=== PATIENT | female | born 1960 | race Caucasian/White ===

== ENCOUNTER 2019-02-25 16:13 | Inpatient (IN) | payer OTHER ==
[~2019-02-25] VITALS: Ht 157.5 cm; Wt 92.1 kg
[2019-02-25 16:20] VITALS: Ht 157.5 cm; Wt 92.1 kg
--- NOTE | 2019-02-25 17:11 | NUR ---
PT BIB SELF C/C LT PINKY TOE BLISTER X 3 WKS STS NOT HEALING AWAITING FOR DR KERVIN CASEY
--- NOTE | 2019-02-25 17:28 | NUR ---
DR ARRINGTON AT BEDSIDE TO CARMELA
[2019-02-25 18:08] LABS: BASOPHIL % 1.2 % (0-2); PLATELET COUNT 262 x10^3mcL (130-400)
[2019-02-25 18:10] LABS: RED CELL DISTRIBUTION WIDTH 15.6 % (11.5-14.5)
[2019-02-25 18:17] LABS: CARBON DIOXIDE 30.4 mmol/L (21-32); POTASSIUM SERUM 4.7 mmol/L (3.5-5.1)
[2019-02-25 18:18] LABS: CALCIUM 8.8 mg/dL (8.5-10.1); CREATININE SERUM 1.4 mg/dL (0.6-1.0)
[2019-02-25 18:22] LABS: BILIRUBIN TOTAL 0.5 mg/dL (0.20-1.00); C REACTIVE PROTEIN 2.9 mg/dL (<=0.9); TOTAL PROTEIN, SERUM 7.9 g/dL (6.4-8.2)
[2019-02-25 18:24] LABS: ALBUMIN 3.2 g/dL (3.4-5.0)
--- NOTE | 2019-02-25 18:25 | NUR ---
STARTED ON IV ATB
[2019-02-25 18:52] LABS: ERYTHROCYTE SED RATE 76 mm/hr (0-30)
--- NOTE | 2019-02-25 19:16 | NUR ---
PLEASE ENTER FULL NAMES OF STONER HAND/RN Patient data collected by (STONER HAND):Maci GRIGGS Assessment reviewed and completed by (RN): Alan ARNOLD
--- NOTE | 2019-02-25 20:07 | NUR ---
ATTEMPTED TO RECONCILE MEDS. PT STATES SHE WILL CONTACT HER DAUGHTER FOR HER MED LIST.
--- NOTE | 2019-02-25 20:17 | NUR ---
REPORT CALLED TO MARIVEL GARDINER TO ASSUME CARE OF PT.
[2019-02-25] MEDS ORDERED: ACTOS15 M1 PO (20:18)
[2019-02-25] MEDS ORDERED: VICTOZA6 MG/M1 (20:18)
[2019-02-25] MEDS ORDERED: BISOPROLOL FM5 MG PO (20:19)
[2019-02-25] MEDS ORDERED: LEVOTHYROXIN0.025 M2 PO (20:19)
[2019-02-25] MEDS ORDERED: ATORVASTATIN CA10 M1 PO (20:19)
[2019-02-25] MEDS ORDERED: LEVEMIR100 U/M1 SQ (20:20)
[2019-02-25] MEDS ORDERED: CYMBALTA20 M1 PO (20:20)
[2019-02-25] MEDS ORDERED: BUPROPION HCL150 M1 PO (21:30)
[2019-02-25 21:31] VITALS: BP 149/121
[2019-02-25] MEDS ORDERED: MIRAPEX0.25 MG PO (21:31)
--- NOTE | 2019-02-25 21:49 | NUR ---
RECEIVED PT FROM ER, PT ADMIT FOR LEFT DM FOOT OSTEOMYELITIS, PT IS A/O X4, VERBAL RESPONSIVE, LUNG SOUND CLEAR BILATERAL, NO COUGH, NO SOB, PT IS ON TELE 18, ST, DENY ANY CHEST PAIN OR DISCOMFORT, BOWEL SOUND PRESENT ALL 4 QUADRANTS, NO DISTENTION, NO TENDER. PEDAL PULSE PRESENT LEFT FOOT FAINT. LEFT FOOT SWELLING AND RED. THERE ARE 2 OPEN BLISTER AT LEFT FIFTH TOE, WOUND CULTURE COLLECTED. TALKED TO DR. CARDOSO REQUEST FOR WOUND CARE ORDER. MADE AWARE, IV AT LEFT FA, NO LEAKING, NO INFILTRATION. ALL ADLS ASSIST, ALL NEED MET, CALL LIGHT IN REACH, WILL CONTINUE TO MONITOR.
--- NOTE | 2019-02-25 23:00 | NUR ---
WOUND CARE PROVIDED. L FOOT ERYTHEMA AND 1+ EDEMA NOTED. REPORTS SOME NUMBING TO L FOOT. OPEN SKIN TO L 5TH TOE. WOUND BED RED AND NONDRAINING. CLEANSED WITH NS, DRIED, AND APPLIED 2X2 GAUZE. WRAPPED WITH KERLIX AND SECURED WITH TAPE. DR. CARDOSO MADE AWARE OF BP 168/86, MAP 105, HR 109. PT HAS NOT TAKING BP MED TODAY. RESIDENT STATED WILL ORDER ONE TIME HYDRALIZINE. PT INFORMED SOMEONE WILL NEED TO BRING HER HOME MED, BISOPROLOL, SINCE WE DO NOT HAVE IT. PT STATED HER DAUGHTER WILL BRING IT IN TOMORROW.
[2019-02-25 23:02] LABS: microscopic required? NO
[2019-02-25 23:24] LABS: urine erythrocyte NEGATIVE (NEGATIVE)
[2019-02-25 23:29] LABS: AMPHETAMINE QUAL UR NONE DETECTED (See below)
[2019-02-26 00:35] VITALS: BP 104/50
--- NOTE | 2019-02-26 01:22 | NUR ---
PT RESTING IN BED WITH EYES CLOSED. NO SIGNS OF DISTRESS OR PAIN NOTED. BREATHING EVEN/UNLABORED ON RA. CALL LIGHT WITHIN REACH, BED AT LOWEST POSITION. WILL CONTINUE TO MONITOR.
[2019-02-26 05:16] VITALS: BP 120/62
--- NOTE | 2019-02-26 05:55 | NUR ---
PT RESTING IN BED WITH EYES CLOSED. AWAKENS WITH VERBAL STIMULI. NO SIGNS OF DISTRESS NOTED. BREATHING EVEN/UNLABORED ON RA. DENIES PAIN AT THIS TIME. BS 156, 3 UNITS GIVEN. WILL ENDORSE TO DAY NURSE.
--- NOTE | 2019-02-26 07:20 | NUR ---
RECEIVED PT FROM PRESSURE TESTER OPERATOR NURSE. PT RESTING IN BED, AOX4, RESP E/U ON RA. DENIES FOOT PAIN AT THIS TIME, NO ACUTE DISTRESS NOTED. ON TELE [address] W/ PVCS, HR: 110. IV TO LCA W/ NO SIGNS OF INFILTRATION, IVF INFUSING WELL. DRESSING TO L 5TH TOE CDI. BED IN LOWEST POSITION AND CALL LIGHT WITHIN REACH. WILL CONTINUE TO MONITOR.
[2019-02-26 07:42] VITALS: BP 144/71
[2019-02-26 07:51] LABS: BASOPHIL % 0.7 % (0-2); PLATELET COUNT 223 x10^3mcL (130-400)
[2019-02-26 07:53] LABS: RED CELL DISTRIBUTION WIDTH 15.5 % (11.5-14.5)
[2019-02-26 08:04] LABS: CALCIUM 8.4 mg/dL (8.5-10.1); CARBON DIOXIDE 30.8 mmol/L (21-32); CREATININE SERUM 1.4 mg/dL (0.6-1.0); MAGNESIUM 1.7 mg/dL (1.8-2.4); PHOSPHOROUS 3.7 mg/dL (2.5-4.9); POTASSIUM SERUM 4.8 mmol/L (3.5-5.1)
--- NOTE | 2019-02-26 09:55 | NUR ---
WOUND CARE DONE. L 5TH TOE W/ NO DRAINAGE TO BLISTERS, PT DENIES PAIN TO SITE. CLEANSED W/ NS, 4X4 GAUZE APPLIED AND SECURED W/ LEOPOLDOX. WILL CONTINUE TO MONITOR.
[2019-02-26 11:44] VITALS: BP 155/82
[2019-02-26 16:26] VITALS: BP 177/87
--- NOTE | 2019-02-26 18:42 | NUR ---
PT RESTING IN BED, AOX4, RESP E/U ON RA. DENIES PAIN TO L FOOT, DRESSING CDI, NO ACUTE DISTRESS NOTED. CONSENT FOR SURGERY TOMORROW OBTAINED. IV TO LAC W/ NO SIGNS OF INFILTRATION. BED IN LOWEST POSITION AND CALL LIGHT WITHIN REACH. WILL ENDORSE TO ONCOMING NURSE.
--- NOTE | 2019-02-26 19:49 | NUR ---
AWAKE AND ALERT, ORIENTED TO NAME, PLACE, TIME AND SITUATION. SPEECH CLEAR AND APPROPRIATE. BREATHING EVEN AND UNLABORED ON ROOM AIR. HOB ELEVATED 30 DEG. IVF OF NS AT 100ML/HR INFUSING WELL TO IV SITE TO LEFT AC. DRESSING TO LEFT FOOT CDI. LEFT FOOT ELEVATED ON PILLOW. CALL LIGHT WITHIN EASY REACH.
[2019-02-26 20:28] VITALS: BP 156/75
--- NOTE | 2019-02-27 00:32 | NUR ---
PT WAS SITTING ON SIDE OF BED. AWAKE AND ALERT, TALKING OVER THE PHONE. CALL LIGHT WITHIN EASY REACH.
--- NOTE | 2019-02-27 01:27 | NUR ---
eyes closed, breathing unlabored. sinus tachycardic on tele, hr 104/min. in no acute distress. npo after midnight. endorsed to nurse mock.
[2019-02-27 04:47] VITALS: BP 142/74
--- NOTE | 2019-02-27 06:13 | NUR ---
PT HAD A RESTING NIGHT NO CHANGE AT THIS TIME WILL CONTINUE TO MONITOR.
[2019-02-27 06:20] LABS: BASOPHIL % 0.8 % (0-2); PLATELET COUNT 229 x10^3mcL (130-400)
[2019-02-27 06:23] LABS: RED CELL DISTRIBUTION WIDTH 15.5 % (11.5-14.5)
[2019-02-27 06:36] LABS: CALCIUM 8.6 mg/dL (8.5-10.1); CARBON DIOXIDE 27.5 mmol/L (21-32); CREATININE SERUM 1.2 mg/dL (0.6-1.0); MAGNESIUM 1.9 mg/dL (1.8-2.4); PHOSPHOROUS 3.5 mg/dL (2.5-4.9); POTASSIUM SERUM 4.3 mmol/L (3.5-5.1)
--- NOTE | 2019-02-27 07:10 | NUR ---
RECEIVED PT FROM ELEMENTARY READING TUTOR NURSE. PT IN BED SLEEPING, AROUSABLE, RESP E/U ON RA. NO SIGNS OF ACUTE DISTRESS NOTED. IV TO LAC W/ NO SIGNS OF INFILTRATIONS, IVF INFUSING WELL. DRESSING TO L FOOT CDI. ON NPO AT THIS TIME FOR SURGERY THIS AFTERNOON. BED IN LOWEST POSITION AND CALL LIGHT WITHIN REACH. WILL CONTINUE TO MONITOR.
[2019-02-27 08:00] VITALS: BP 150/84
--- NOTE | 2019-02-27 08:15 | NUR ---
WOUND CARE CONSULT NOT DONE, PT. SEEN AND EXAMED BY FOREPART LASTER DR. RAMOS WITH PLAN FOR AMPUTATION ON LEFT 5TH TOE.
[2019-02-27 12:03] VITALS: BP 154/91
--- NOTE | 2019-02-27 12:21 | NUR ---
PT RESTING IN BED, AOX4, RESP E/U ON RA. NO ACUTE DISTRESS NOTED. DRESSING TO L FOOT CDI, DENIES PAIN TO LLE. BED IN LOWEST POSITION AND CALL LIGHT WITHIN REACH. WILL CONTINUE TO MONITOR.
--- NOTE | 2019-02-27 14:12 | NUR ---
1. Recommend CCHO, cardiac diet once medically appropriate/ tolerated. 2. DM diet education provided.
--- NOTE | 2019-02-27 14:12 | NUR ---
Initial Nutrition Assessment: 238T/B DILAN MANUEL IA HR Dx: L diabetic foot osteomyelitis PMHx: HTN, DM, Diabetic neuropathy, Hypothyrodisim and high cholesterol PSHx: Labs: BG 125H, BUN 20H, CREAT 1.2H, A1C 8.2H, HGB 10.0L Meds: Colace, D 50%, Humulin, Lipitor, norco, synthyroid, vancomycin, Zofran, zosyn Diet: NPO (Sx) PO intake since admission: (02/26) dinner 90%, breakfast 100% Ht: 157.48 cm (62") Wt: 92 kg (202#) BMI: 37.1 kg/m2 Bed scale: 202.1# IBW: 110# (50 kg) %IBW: 183 UBW: 202# Age: 58/F Food Allergies: NKFA Skin: dressing to L foot Myron: 20 Edema: trace to L foot GI: Last BM: 02/25 Per H&P, Pt is a 58 years old female with PMH of HTN, DM, Diabetic neuropathy, Hypothyroidism and high cholesterol who brought to ED due to blister in his left 5th toe. RD Note (02/27): Patient was alert and oriented and said that she is NPO for surgery currently and does not have any N/V/D/C at this time. Patient said she has good appetite and she ate >75% of her meals yesterday. Diet education regarding Diabetic diet was provided, concept of A1C was also explained. Patient said that food insecurity is the issue for her. Problem with: N/V/D/C: none at this time per pt. Problems with: Chewing: Swallowing: none Current appetite: good Recent wt change: none %wt change: n/a Vitamin/Supplement use: none Special diet at home: Regular Physical activity: sedentary Nutrition education given: DM diet education was provided using [place] handout on 'Type 2 Diabetes Nutrition Therapy'. Concepts like high fiber foods and portion control were discussed. Patient verbalized understanding and did not have any questions at this time. Food-drug interactions: Lipitor- avoid grapefruit Education given: yes Estimated Nutritional Needs Based on body weight (61 kg) Energy: 2378-7877 kcal/day (30-35 kcal/kg for pre/post-surgery) Protein: 73-85 g/day (1.2-1.4 g/kg for post-surgery) Fluid: 0372-6936 mL/day (1 mL/kcal) Nutrition Diagnosis: 1. Food and nutrition related knowledge deficit related to no prior nutrition education as evidenced by A1C 8.2 Intervention 1. Recommend CCHO, cardiac diet once medically appropriate/ tolerated. 2. DM diet education provided. Monitor/Evaluate Goal: PO intake at least 75% of estimated needs Monitor: PO intake, Labs, GI function F/U in 7 days as low risk 03/06
--- NOTE | 2019-02-27 14:56 | NUR ---
PT BROUGHT DOWN FOR SURGERY AT THIS TIME.
[2019-02-27 18:08] VITALS: BP 158/84
--- NOTE | 2019-02-27 18:50 | NUR ---
IV INFILTRATED. IV TO RFA REMOVED, CATH INTACT. PLACED NEW IV TO RFA, 18G, PATENT AND INTACT. IV ZOSYN ADMINISTERED AT THIS TIME, INFUSING WELL. PT AOX4, RESP E/U ON RA. DENIES PAIN TO L FOOT S/P L 5TH DIGIT AMPUTATION, DRESSING CDI. BED IN LOWEST POSITION AND CALL LIGHT WITHIN REACH. WILL ENDORSE TO ONCOMING NURSE.
--- NOTE | 2019-02-27 19:19 | NUR ---
MICROBIOLOGY TECH CALLED STATED NEED TO CHANGE ORDER FROM TISSUE CULTURE TO ABSCESS CULTURE OF SPECIMEN SENT. INFORMED DR. CORRIGAN
--- NOTE | 2019-02-27 19:35 | NUR ---
AWAKE AND ALERT, ORIENTED TO NAME, PLACE, TIME AND SITUATION. SPEECH CLEAR AND APPROPRIATE. IVF OF NS INFUSING AT 100ML/HR INTO RIGHT FOREARM, IV SITE FREE FROM ERYTHEMA OR SWELLING. LEFT FOOT DRESSING CDI, LEFT FOOT ELEVATED ON PILLOW.
[2019-02-27 19:45] VITALS: BP 119/61
--- NOTE | 2019-02-27 22:16 | NUR ---
EYES CLOSED, BREATHING EVEN AND UNLABORED. CALL LIGHT WITHIN EASY REACH.
[2019-02-28 04:32] VITALS: BP 114/57
[2019-02-28 06:50] LABS: BASOPHIL % 0.4 % (0-2); CALCIUM 8.6 mg/dL (8.5-10.1); CARBON DIOXIDE 31.6 mmol/L (21-32); CREATININE SERUM 1.4 mg/dL (0.6-1.0); PLATELET COUNT 256 x10^3mcL (130-400); POTASSIUM SERUM 5.2 mmol/L (3.5-5.1)
[2019-02-28 06:57] LABS: RED CELL DISTRIBUTION WIDTH 15.3 % (11.5-14.5)
--- NOTE | 2019-02-28 07:15 | NUR ---
awake and alert, breathing even and unlabored on room air. left foot elevated on pillow. dressing to left foot was changed today by podiatrists. endorsed to nurse arechiga
[2019-02-28 07:43] VITALS: BP 152/72
--- NOTE | 2019-02-28 08:24 | NUR ---
AT 0715 - RECEIVED PATIENT FROM NIGHT NURSE. AWAKE, ALERT AND ORIENTED. SITTING UP IN BED. NO C/O PAIN. DRESSING WAS JUST CHANGED BY PODIATRY DOCTORS. LEFT LEG ELEVATED ON PILLOWS. IV INFUSING NS AT 100 ML/HR. AT 0800 - EATING BREAKFAST. APPEARS COMFORTABLE.
--- NOTE | 2019-02-28 09:00 | NUR ---
STATUS CHANGED TO MED-SURG. PATIENT HAS BEEN TAKEN OFF CARDIAC MONITORING.
--- NOTE | 2019-02-28 09:56 | NUR ---
PATIENT HAS BEEN UP WITH PHYSICAL THERAPY. NO C/O PAIN. NOW RESTING QUIETLY.
--- NOTE | 2019-02-28 14:02 | NUR ---
PATIENT AMBULATED TO BATHROOM WITH ASSISTANCE - PARTIAL WEIGHT BEARING LEFT FOOT (HEEL TOUCH ONLY). C/O PAIN 10/14. WILL MEDICATE WITH NORCO PER EMAR.
[2019-02-28 16:39] VITALS: BP 107/56
--- NOTE | 2019-02-28 18:22 | NUR ---
AT 1748 - RECEIVED CALL FROM LAB WITH VANCOMYCIN TROUGH OF 16.5. SPOKE WITH PHARMACIST ANASTASIYA. PER PHARMACIST, LEVEL IS IN CORRECT RANGE FOR PATIENT'S TREATMENT INDICATIONS, SO RECEIVED INSTRUCTION TO GO AHEAD AND ADMINISTER SCHEDULED DOSE AT 1800. AT 1820 - PATIENT EATING DINNER. VANCOMYCIN IN PROGRESS. PAIN UNDER CONTROL L FOOT DRESSING INS DRY AND INTACT. LLE ELEVATED ON PILLOWS. WILL ENDORSE CARE TO NIGHT NURSE.
--- NOTE | 2019-02-28 19:46 | NUR ---
PT SEATED UP IN BED LT LEG ELEVATED WITH 2 PILLOWS, INTACT DRESSING TO LEFT FOOT, S/P AMPUTATION, LT 5TH DIGIT TOE, NO SIGNS OF BLEEDING, DENIES PAIN, NO DISTRESS LUNGS CTA IVF NS INFUSING @ RFA @ 100CC/HR, CONT ON IV ATB VANCO AND ZOSYN ORDERED NO ADV REACTION, AAO X4 VERBALIZED NEEDS, SHIFT ASSESSMENT DONE, CALL LIGHT AT REACH, CONT TO MONITOR.
[2019-02-28 20:50] VITALS: BP 146/77
--- NOTE | 2019-03-01 00:04 | NUR ---
HANGED IV ATB ZOSYN ORDERED NO ADV REACTION, PT ASLEEP NO S/SX OF PAIN OR DISCOMFORTS, LEFT FOOT ELEVATED WITH 2 PILLOWS, CALL LIGHT WITH IN EASY ACCESS CONT TO MONITOR.
[2019-03-01 04:29] VITALS: BP 127/67
--- NOTE | 2019-03-01 05:56 | NUR ---
PT SLEPT WELL DURING THE SHIFT, DENIES PAIN NO DISTRESS INTACT DRESSING TO LT FOOT NO BLEEDING KEEP ELEVATED WITH PILLOW, IVF INFUSING WELL, DUE MEDS GIVEN V/S CHECKED AND RECORDED, CONT TO MONITOR.
[2019-03-01 07:25] LABS: BASOPHIL % 1.4 % (0-2); PLATELET COUNT 229 x10^3mcL (130-400)
[2019-03-01 07:39] LABS: RED CELL DISTRIBUTION WIDTH 15.6 % (11.5-14.5)
[2019-03-01 07:59] LABS: CALCIUM 8.8 mg/dL (8.5-10.1); CREATININE SERUM 1.3 mg/dL (0.6-1.0); POTASSIUM SERUM 4.5 mmol/L (3.5-5.1)
--- NOTE | 2019-03-01 08:03 | NUR ---
AAO TIMES 4. MED SURG. LUNGS CTA. NO SOB. O2 SAT ON RA 98%. BS'S ACTIVE TIMES 4. OLIVAS STRONG, EXCEPT PARTIAL WEIGHT BEARING TO LEFT HEEL ONLY WHEN AMBULATING. LEFT FOOT ELEVATED ON 2 PILLOWS. IV SITE RFA CDI. COOPERATIVE AND PLEASANT. NO C/O PAIN. ORTHO SHOE AT BEDSIDE.
[2019-03-01 08:14] VITALS: BP 158/86
[2019-03-01] MEDS ORDERED: BACTRIM DS1 TAB PO (09:37)
[2019-03-01] MEDS ORDERED: APAP/HYDROCODON1 T13 PO (09:54)
--- NOTE | 2019-03-01 10:27 | NUR ---
AMBULATING WITH PT, HIS OXYGEN SAT WENT DOWN TO 80%. APPLIED O2 2L NC, AND HIS O2 SAT WENT TO 93%. JOSÉ MIGUEL BUCKLEY CARE INFORMATION ASSOCIATE AWARE, HE HAS HOME OXYGEN.
--- NOTE | 2019-03-01 11:14 | NUR ---
REMOVED DRESSING TO LEFT FOOT, CLEANED WITH WOUND CLEANSER, TOOK PHOTO, SUTURES TO LEFT 5TH TOE AMPUTATION AREA CDI, INCISION IS 7.5 CM. PHOTO HAD SUNLIGHT OVER FOOT, THERE IS NO WHITNESS OR MACERATION TO FOOT. INCISION CDI. APPLIED FLUFF GAUZE TO BOTTOM FOREFOOT, GAUZE WRAP, AND WHITE DARIN WRAP. APPLIED HER SURGICAL SHOE.
[2019-03-01 12:02] VITALS: BP 158/86
--- NOTE | 2019-03-01 13:22 | NUR ---
GAVE DISCHARGE INSTRUCTIONS AND PRESCRIPTION SENT ELECTRONICALLY BY JOSÉ MIGUEL BUCKLEY WIRE STITCHER OPERATOR. REMOVED SALINE LOCK ANGIO INTACT. AAO TIMES 4. NO C/O PAIN. DRESSING LLE CDI. COOPERATIVE.
== END 2019-03-01 13:34 | disposition home health service (06) | DRG 474 ==
LOC: ED 16:13 → DU 19:58 → MU 19:58 → DU 20:31 → MU 02-28 07:56
PROVIDERS: Emergency Medicine; Podiatrist Foot & Ankle Surgery; ADMIT General Practice
PROC: 0QBR0ZZ Excision of Left Toe Phalanx, Open Approach (ICD-10-PCS; 2019-02-27)
PROC: 0Y6N0ZF Detachment at Left Foot, Partial 5th Ray, Open Approach (ICD-10-PCS; principal; 2019-02-27 14:00)
DX: M86.172 Other acute osteomyelitis, left ankle and foot (principal); N17.0 Acute kidney failure with tubular necrosis; L03.116 Cellulitis of left lower limb; E44.1 Mild protein-calorie malnutrition; D53.9 Nutritional anemia, unspecified; S90.425A Blister (nonthermal), left lesser toe(s), initial encounter; E11.42 Type 2 diabetes mellitus with diabetic polyneuropathy; E11.65 Type 2 diabetes mellitus with hyperglycemia; E03.9 Hypothyroidism, unspecified; Z79.84 Long term (current) use of oral hypoglycemic drugs; X58.XXXA Exposure to other specified factors, initial encounter; Y93.89 Activity, other specified; Y92.89 Other specified places as the place of occurrence of the external cause; Z68.39 Body mass index [BMI] 39.0-39.9, adult
CPT/HCPCS: 82962; 90658; 97112-GP; 97116-GP; 97530-GP; G0378; J1815; J2405; J2543; J2704; J3010; J3370; J3490; J7030; J7050; J7120; Q0092

== ENCOUNTER 2019-05-10 12:51 | Emergency (ER) | payer OTHER ==
[~2019-05-10] VITALS: Ht 157.5 cm; Wt 93.0 kg
[~2019-05-10 12:51] MED LIST: ACTOS15 M1 PO; APAP/HYDROCODON1 T13 PO; ATORVASTATIN CA10 M1 PO; BACTRIM DS1 TAB PO; BISOPROLOL FM5 MG PO; BUPROPION HCL150 M1 PO; CYMBALTA20 M1 PO; LEVEMIR100 U/M1 SQ; LEVOTHYROXIN0.025 M2 PO; MIRAPEX0.25 MG PO; VICTOZA6 MG/M1
[2019-05-10 13:07] VITALS: BP 127/76; Ht 157.5 cm; Wt 93.0 kg
== END 2019-05-10 16:34 | disposition home or self-care (01) ==
LOC: ED 12:51
DX: S82.391A Other fracture of lower end of right tibia, initial encounter for closed fracture (principal); S82.831A Other fracture of upper and lower end of right fibula, initial encounter for closed fracture; E11.9 Type 2 diabetes mellitus without complications; E03.9 Hypothyroidism, unspecified; W01.0XXA Fall on same level from slipping, tripping and stumbling without subsequent striking against object, initial encounter; Y93.89 Activity, other specified; Y92.89 Other specified places as the place of occurrence of the external cause; Y99.8 Other external cause status

== ENCOUNTER 2019-12-22 16:35 | Inpatient (IN) | payer OTHER, SELFPAY ==
[~2019-12-22] VITALS: Ht 157.5 cm; Wt 101.8 kg
[2019-12-22 16:52] VITALS: Ht 157.5 cm; Wt 101.8 kg
--- NOTE | 2019-12-22 16:53 | NUR ---
PT BIB [facility] BLS FOR C/O LOWER BACK PAIN AND LEFT HIP PAIN X3 DAYS S/P FALL. PT REPORTED HER DAUGHTER CALLED 911 "WHEN I WAS UNABLE TO GET UP OFF THE COUCH." PT IS AAOX4, LUNGS CTA, RESP E/U. PT UNABLE TO MOVE HERSELF FROM [facility] TO [facility]. PT WAS ASSISTED BY MEDICS. PT REPORTS HISTORY OF DIABETIC NEUROPATHY. MSE COMPLETED BY DR BAEZ.
--- NOTE | 2019-12-22 17:00 | NUR ---
PT NORMALLY AMBULATES WITHOUT ASSISTANCE PER PT.
--- NOTE | 2019-12-22 17:27 | NUR ---
PT TAKEN OFF THE ER FLOOR VIA GUERNEY TO HEATH.
--- NOTE | 2019-12-22 18:05 | NUR ---
DR BAEZ MADE AWARE OF VS. DR BAEZ AT THE BEDSIDE DISCUSSING PLAN OF CARE. PT REPORTED "I HAD FEVERS LAST WEEK." PER DR BAEZ, WILL ORDER AN ABG. WILL CONT TO MONITOR.
--- NOTE | 2019-12-22 18:35 | NUR ---
IV FLUIDS INITIATED AT THIS TIME, 1000ML BOLUS IV NS PER DR CARLTON VERBAL ORDER
--- NOTE | 2019-12-22 18:43 | NUR ---
PT BILATERAL PUPILS NOTED 2MM AND PINPOINT. PT NOTED STARING OFF AT TIMES BUT ABLE TO VERBALIZE NEEDS AND FOLLOW COMMANDS. DR BAEZ MADE AWARE. PT DENIES TAKING ANY MEDS "EXCEPT ADVIL" AT 1200 DE ICER INSTALLER TODAY NARCAN GIVEN IVP 0.4MG/ML PER DR BAEZ VERBAL ORDER.
--- NOTE | 2019-12-22 19:15 | NUR ---
REPORT GIVEN TO NONI ORTA WHO WILL ASSUME FURTHER CARE OF THIS PT
[2019-12-22 19:24] LABS: microscopic required? YES; urine erythrocyte 1+ (NEGATIVE)
--- NOTE | 2019-12-22 19:46 | NUR ---
RECED PT FROM AM RN WITH LOW B/P. MD AT THE BEDSIDE WITH PT AND GAVE NEW ORDER FOR 0/9NS BOLUS. AM RN CARRIED OUT ORDER. PT WITH NO S/S OF RESP DISTRESS NOTED PT STATES DAUGHTER HAS BEEN EXPOSED TO COVID PATIENTS. GAVE ORDER TO SEND COVID TEST. COLLECTED AND SENT TO THE LAB PT TOLERATED WELL. WILL CONTINUE TO MONITOR PT.
[2019-12-22 19:48] LABS: CALCIUM 8.2 mg/dL (8.5-10.1); CARBON DIOXIDE 32.8 mmol/L (21-32); CREATININE SERUM 1.8 mg/dL (0.6-1.0); POTASSIUM SERUM 3.8 mmol/L (3.5-5.1)
[2019-12-22 19:53] LABS: BILIRUBIN TOTAL 0.57 mg/dL (0.20-1.00); TOTAL PROTEIN, SERUM 6.5 g/dL (6.4-8.2)
[2019-12-22 19:58] LABS: PLATELET COUNT 257 x10^3mcL (130-400)
[2019-12-22 20:00] LABS: RED CELL DISTRIBUTION WIDTH 17.6 % (11.5-14.5)
[2019-12-22 20:04] LABS: ALBUMIN 1.9 g/dL (3.4-5.0)
[2019-12-22 20:17] LABS: C REACTIVE PROTEIN 31.5 mg/dL (<=0.9)
[2019-12-22 20:21] LABS: MONOCYTE 3 % (0-7); SEGMENTED NEUTROPHILS 87 % (37-75)
[2019-12-22 20:22] LABS: BAND NEUTROPHIL 7 % (0-10); BASOPHIL 0 % (0-2); rbc morphology (normal/abnorm) NORMAL (NORMAL)
--- NOTE | 2019-12-22 20:30 | NUR ---
GAVE ORDER TO ADMIT PT TO ICU. PT AWARE AND STABLE AT THIS TIME. PT COVID R/O RR 20 02 SAT 100% NO DISTRESS NOTED
[2019-12-22 21:37] LABS: MAGNESIUM 1.9 mg/dL (1.8-2.4); PHOSPHOROUS 2.8 mg/dL (2.5-4.9)
[2019-12-22 21:38] LABS: CHOLESTEROL/HDL RATIO 3.5
--- NOTE | 2019-12-22 21:40 | NUR ---
RESIDENT AT THE BEDSIDE TO EXAMINE PT. PT V/S WNL RESTING WELL WITH NO CHANGE IN CONDITION NOTED WILL CONTINUE TO MONITOR PT FOR CHANGES. MADE MD AWARE OF SWELLING TO RT LOWER EXT WITH WOUND NOTED EXT WARM TO TOUCH SWELLING AND REDNESS NOTED.
[2019-12-22 21:45] LABS: FREE T4 1.22 ng/dL (0.76-1.46); FREE THYROXINE INDEX 2.5 ug/dL (1.4-4.5); T4(THYROXINE) 6.3 ug/dL (4.7-13.3)
[2019-12-22 21:50] LABS: T3 TOTAL 0.34 ng/mL
--- NOTE | 2019-12-22 23:43 | NUR ---
PT REMAIN RESTING WELL WITH NO CHANGE IN CONDITON AT THIS TIME VANCOMYCIN INFUSING PER MD ORDER WITH NO S/S OF ADVERSE REACTION NOTED WILL CONTINUE TO MONITOR PT UNTIL ADMITTED TO ICU
--- NOTE | 2019-12-23 | NUR ---
PATIENT ALSEEP RESETING WELL WITH NO CHANGE IN CONDITON NOTED. ZOSYN HELD AT THIS TIME TO CLOSE SINCE LAST DOSE. WILL GIVE OR ENDORSE 0600 DOSE PER MD ORDER. V/S WNL NO CHANGE IN CONDITON NOTED AT THIS TIME
--- NOTE | 2019-12-23 02:30 | NUR ---
PT REMAIN IN STABLE CONDITON WITH V/S WNL. RESIDENT CALLED TO DOWNGRADE PATIENT TO TELE. GAVE ORDER TO ADMIT PT TO TELE AFTER UPDATE GIVEN. WILL CONTINUE TO MONITOR PATIENT FOR A CHANGE IN CONDITON. NO S/S OF RESP DISTRESS NOTED PT REMAIN ON ISOLATION FOR COVID.
--- NOTE | 2019-12-23 07:15 | NUR ---
CANCELLATION REQUESTED FOR ECHOCARDIOGRAM
--- NOTE | 2019-12-23 07:30 | NUR ---
REPORT TAKEN. PT AAOX4 AND EATING BREAKFAST SITTING H/F. GLUCOSE 85. VSS, NAD NOTED AT THIS TIME.
--- NOTE | 2019-12-23 08:16 | NUR ---
RICKS BAG DRAINED. TOTAL OUTPUT 700ML. ALEX COLORED URINE
--- NOTE | 2019-12-23 08:40 | NUR ---
ADMITTED PT FROM ED WITH DX OF RT LEG CELLULITIS, PUI. PT IS A/A/OX4 DENIES GARCIA. RESP EVEN AND UNLABORED WITH CLEAR BS BILAT ON O2 AT 2L/MIN VIA NC. PLACED ON TELE #39 SHOWING NSR HR IN 90S. DENIES ANY CP/PRESSURE. NOTED WITH +2 EDEMA TO RLE. WITH IV TO LW AND LFA 20G. PATENT. ABD SOFT, OBESE, NONTENDER WITH ACTIVE BS X4. HX CONSTIPATION. DENIES ANY N/V AT THIS TIME. RICKS CATH TO GRAVITY WITH YELLOW URINE. NOTED WITH SCATTERED DRY "BLISTERS" DESCRIBED BY PT AT VARIOUS STAGES OF HEALING. TO ABD, BLE AND BUE. SOME WITH DRY SCABS. NO OPEN WOUNDS AT THIS TIME. PT ORIENTED TO ROOM AND CALL LIGHT SYSTEM. DROPLET PRECAUTIONS MAINTAINED FOR CVD R/O. CALL LIGHT IN REACH NEEDS ATTENDED TO.
[2019-12-23 08:58] LABS: PLATELET COUNT 279 x10^3mcL (130-400)
[2019-12-23 09:11] LABS: RED CELL DISTRIBUTION WIDTH 17.6 % (11.5-14.5)
[2019-12-23 09:16] LABS: CALCIUM 8.3 mg/dL (8.5-10.1); CARBON DIOXIDE 25.3 mmol/L (21-32); CREATININE SERUM 1.6 mg/dL (0.6-1.0); POTASSIUM SERUM 3.8 mmol/L (3.5-5.1)
[2019-12-23 09:20] LABS: MAGNESIUM 2.1 mg/dL (1.8-2.4); PHOSPHOROUS 3.1 mg/dL (2.5-4.9)
--- NOTE | 2019-12-23 09:45 | NUR ---
DR LEMUS NOTIFIED ABOUT PATIENTS FIRST COVID SWAB RESULTS. RESULTS NEGATIVE. NO FUTHER ORDERS AT THIS TIME
[2019-12-23 10:59] LABS: BAND NEUTROPHIL 30 % (0-10); BASOPHIL 0 % (0-2); METAMYELOCTE 2 % (0-2); MONOCYTE 3 % (0-7); MYELOCYTE 1 % (0-2); SEGMENTED NEUTROPHILS 53 % (37-75)
[2019-12-23 11:03] LABS: PLATELET MORPHOLOGY GIANT PLATELET SEEN; burr cell (echinocyte) 1+; ovalocyte/elliptocyte 1+; rbc morphology (normal/abnorm) ABNORMAL (NORMAL); tear drop cell (dacryocyte) 1+
--- NOTE | 2019-12-23 11:20 | NUR ---
PT RESTING AT THIS TIME DENIES ANY DISCOMFORT AT THIS TIME. CALL LIGHT IN REACH NEEDS ATTENDED TO.
[2019-12-23 12:18] VITALS: BP 145/67
[2019-12-23 14:30] VITALS: BP 131/67
--- NOTE | 2019-12-23 16:00 | NUR ---
PT RESTING AT THIS TIME. DENIES ANY DISCOMFORT AT THIS TIME. CALL LIGHT IN REACH NEEDS ATTENDED TO.
[2019-12-23 16:20] VITALS: BP 98/58
[2019-12-23 17:08] LABS: AMPHETAMINE QUAL UR NONE DETECTED (See below)
--- NOTE | 2019-12-23 18:50 | NUR ---
PT RESTING COMFORTABLY AT THIS TIME. DENIES ANY DISCOMFORT. CALL LIGHT IN REACH NEEDS ATTENDED TO.
--- NOTE | 2019-12-23 19:20 | NUR ---
RECEIVED PATIENT FROM PREVIOUS SHIFT NURSE. PATIENT IN NO ACUTE DISTRESS. AWAKE, ALERT AND ORIENTED X4. FOLLOWS COMMANDS AND ABLE TO MAKE NEEDS KNOWN. DENIES ANY PAIN AT THIS TIME. TELE #[address], NSR. EVEN AND UNLABORED BREATHING NOTED ON 2L NC. DENIES ANY SOB AT THIS TIME. RICKS IN PLACE, DRAINING TO GRAVITY WITH YELLOW COLORED URINE. PATIENT HAS VARIOUS SCATTERED SCABS IN DIFFERENT STAGES OF HEALING PROCESS. NO OPEN WOUNDS NOTICED AT THIS TIME. PATIENT SAID THEY WERE BLISTERS. NO PAIN AT SCAB SITES. IVS WNL. NO ERYTHEMA/EDEMA AT IV SITES. FLUSHING WELL, GOOD BLOOD RETURN.
[2019-12-23 19:33] VITALS: BP 124/59
--- NOTE | 2019-12-23 20:45 | NUR ---
DR LEMUS NOTIFIED ABOUT PATIENTS NEGATIVE COVID RESULTS. ISOLATION PRECAUTIONS STILL REMAIN IN PLACE. NO FURTHER ORDERS FROM . SANJIV ORDERS TO DC ISOLATION AT THIS TIME.
--- NOTE | 2019-12-24 02:13 | NUR ---
PATIENT REMAINS IN NO ACUTE DISTRESS. CURRENTLY SLEEPING. EVEN AND UNLABORED BREATHING NOTED, 2L NC. MEDICATED PER MAR WITH NORCO. HAS NOT C/O SINCE MEDICATED. PATIENT VERBALIZED RELIEF OF PAIN UPON ASSESSMENT. TELE #[address], NSR. BED IN LOWEST POSITION. CALL LIGHT WITHIN REACH. ISOLATION PRECAUTIONS IN PLACE.
--- NOTE | 2019-12-24 02:27 | NUR ---
PAGED DR LEMUS IN REGARDS TO COVID RESULTS. AWAITING ORDERS FOR DC OF ISOLATION PRECAUTIONS OR SWAB FOR COVID A SECOND TIME. NO ORDERS AT THIS TIME.
[2019-12-24 05:16] VITALS: BP 127/53
--- NOTE | 2019-12-24 06:40 | NUR ---
REMAINS IN NO ACUTE DISTRESS. ALL CONCERNS HAVE BEEN ADRESSED. NO ACUTE EVENTS OVER NIGHT. PATIENT IS NOT COMPLAINING OF PAIN AT THIS TIME. TOELRATED MEDICATIONS WELL. WILL CONTINUE TO MONITOR. WILL ENDORSE CARE TO ONCOMING SHIFT NURSE.
--- NOTE | 2019-12-24 07:30 | NUR ---
PATIENT IS A&OX4, FOLLOWS COMMANDS AND COOPERATES WELL. TELE #39, NSR, DENIES CHEST PAIN. PERIPHERAL PULSES PALPABLE W/ RLE NONPITTING EDEMA. LUNG SOUNDS CTA BILATERALLY, ON RA, O2 SAT 97%, DENIES SOB. NORMOACTIVE BSX4, ABD SOFT AND FLAT, DENIES ABD PAIN, NPO AT THIS TIME FOR FUTURE SURGERY. RICKS CATHETER DRAINING CLEAR YELLOW URINE. GENERALIZED WEAKNESS, REQUIRES ASSISTANCE WHEN AMBULATING. SCATTERED SCABS NOTED ON ABD. RLE DISCOLORATION NOTED WELL. IV SITE IS CDI. DENIES PAIN OR DISCOMFORT AT THIS TIME. INFORMED CONSENTS HAVE BEEN SIGNED. HAS ALREADY ANSWERED QUESTIONS AND CONCERNS WHEN EXPLAINING THE PROCEDURE LAST NIGHT. VSS. WILL CONTINUE TO MONITOR PATIENT.
[2019-12-24 08:42] VITALS: BP 117/56
--- NOTE | 2019-12-24 10:49 | NUR ---
ABX ARE CURRENTLY INFUSING AT THIS TIME. IV REMAINS PATENT. PATIENT STATES RLE PAIN IS MANAGEABLE AND DOES NOT REQUIRE MEDICATION, EVEN AFTER PHYSICAL THERAPY. WILL CONTINUE TO MONITOR PATIENT.
--- NOTE | 2019-12-24 10:59 | NUR ---
PATIENT'S RIGHT WRIST IV HAS BEEN DC BECAUSE IT WAS LEAKING. IV CATHETER WAS INTACT AND DISPSOED OF IN SHARPS CONTAINER. RFA IV SITE IS CDI AND NOW BEING USED FOR ABX.
[2019-12-24 12:12] VITALS: BP 119/62
--- NOTE | 2019-12-24 12:44 | NUR ---
CHG WIPES HAVE BEEN DONE ON PATIENT. INFORMED PATIENT TAHT JEWELRY AND DENTURES MUST BE TAKEN OUT PRIOR TO SURGERY. ALL QUESTIONS AND CONCERNS HAVE BEEN ADDRESSED. WILL CONTINUE TO MONITOR.
--- NOTE | 2019-12-24 13:00 | NUR ---
PATIENT WAS TRANSFERRED TO SURGERY AT THIS TIME. WILL AWAIT FOR PATIENT TO RETURN FROM SURGERY.
--- NOTE | 2019-12-24 17:45 | NUR ---
PATIENT RETURNED FROM OR AFTER PROCEDURE. PATIENT WAS WIDE AWAKE, AND DID NOT COMPLAIN OF ANY PAIN OR DISCOMFORT AT THIS TIME. UPON ARRIVAL, IT WAS NOTED THAT PATIENT HAD DRESSINGS OVER HER RLE WITH A WOUND VAC IN USE AT 150 MM HG. RECONNECTED PATIENT WITH IV FLUIDS AND ABX. BP IS ELEVATED, BUT WILL CONTINUE TO MONITOR. PATIENT IS CURRENTLY SPEAKING TO FAMILY AT THIS TIME.
--- NOTE | 2019-12-24 18:15 | NUR ---
PATIENT IS CURRENTLY RESTING IN BED AND STILL DENIES ANY PAIN OR DISCOMFORT AT THIS TIME. WILL CONTINUE TO MONITOR PATIENT AND MANAGE PAIN NEEDED.
--- NOTE | 2019-12-24 19:45 | NUR ---
RECEIVED PT FROM AM NURSE, PT AWAKE IN BED WATCHING TELEVISION. AA/O X 4, ABLE TO MAKE NEEDS KNOWN, CLEAR SPEECH, NO FACIAL DROOP. DENIES HEADACHE/ DENIES DIZZINESS. TELE MONITOR #39, NSR, HR 96 BPM. DENIES CHEST PAIN/ CHEST PRESSURE. PULSES PALPABLE. LUNG SOUNDS CTA, ON ROOM AIR, RESPIRATIONS E/U. NO RESPIRATORY DISTRESS, DENIES SOB. ACTIVE BS X 4 QUADS, ABD SOFT AND NON TENDER, DENIES N/V/D. PT HAS FC DRAINING TO GRAVITY, DRAINING YELLOW URINE. GENERALIZED WEAKNESS. R LEG 4 INCISIONS CLOSED WITH TRINI, 3 INCISIONS CONNECTED TO WOUND VAC SETTING 150 PRESSURE. LEFT FOOT 2 TOES AMPUTATED. IV TO RFA INTACT, IV FLUIDS INFUSING WELL. NO ERYTHEMA/ NO INFILTRATION AT THIS TIME. PT DENIES PAIN. ALL CONCERNS ADDRESSED. CALL BUTTON WITHIN REACH, WILL CONTINUE TO MONITOR.
[2019-12-24 21:08] VITALS: BP 126/51
--- NOTE | 2019-12-24 23:45 | NUR ---
pt blood sugar 298, DR. ALLAN ORDERED 45 UNITS LANTUS. UNABLE TO SCAN ON EMAR. 45 UNITS OF LANTUS GIVEN TO PT. SECOND RN DOUG WITNESSED. PUDDING SNACK GIVEN. WILL CONTINUE TO MONITOR.
--- NOTE | 2019-12-25 00:15 | NUR ---
PT IN BED RESTING WITH EYES CLOSED, BUT EASILY AROUSABLE. RESPIRATIONS E/U ON 2 LPM OF VIA NC. DENIES SOB, NO RESPIRATORY DISTRESS AT THIS TIME. TELE MONITOR #39, NSR, HR 94. DENIES PAIN AT THIS TIME. WOUND VAC ATTACHED AT THIS TIME. NO ACUTE DISTRESS. CALL BUTTON WITHIN REACH, WILL CONTINUE TO MONITOR.
--- NOTE | 2019-12-25 04:15 | NUR ---
BLOOD SUGAR CHECKED SINCE LANTUS 45 UNITS WAS GIVEN. BLOOD SUGAR IS 218. WILL CONTINUE TO MONITOR.
[2019-12-25 06:11] VITALS: BP 144/72
[2019-12-25 06:53] LABS: PLATELET COUNT 266 x10^3mcL (130-400)
--- NOTE | 2019-12-25 07:15 | NUR ---
PT SLEPT IN INTERVALS THROUGHOUT THE NIGHT, BUT EASILY AROUSABLE. RESPIRATIONS E/U ON RA. NO RESPIRATORY DISTRESS. PT COMPLAINED OF PAIN, PRN NORCO GIVEN PER ORDER, EFFECTIVE. WOUND VAC TO RLE IN PLACE, PRESSURE 150, MINIMAL OUTPUT NOTED. IV FLUIDS INFUSING WELL TO IV. NO ACUTE CHANGES OVERNIGHT. CALL BUTTON WITHIN REACH, CARE ENDORSED TO AM NURSE.
[2019-12-25 07:17] LABS: CALCIUM 8.2 mg/dL (8.5-10.1); CARBON DIOXIDE 31.7 mmol/L (21-32); CREATININE SERUM 1.5 mg/dL (0.6-1.0); MAGNESIUM 2.2 mg/dL (1.8-2.4); PHOSPHOROUS 3.1 mg/dL (2.5-4.9); POTASSIUM SERUM 4.8 mmol/L (3.5-5.1)
[2019-12-25 07:19] LABS: RED CELL DISTRIBUTION WIDTH 18.5 % (11.5-14.5)
[2019-12-25 07:21] LABS: ALBUMIN 1.6 g/dL (3.4-5.0); C REACTIVE PROTEIN 14.8 mg/dL (<=0.9)
[2019-12-25 07:30] VITALS: BP 140/89
--- NOTE | 2019-12-25 07:49 | NUR ---
PATIENT IS A&OX4, FOLLOWS COMMANDS AND COOPERATES WELL. TELE #39, NSR, DENIES CHEST PAIN. PERIPEHRAL PULSES PALPABLE W/ NOTED EDEMA ON RLE, WHICH IS COVERED WITH SURGICAL DRESSINGS. DRESSINGS CDI. LUNG SOUNDS CTA BILATERALLY, ON RA, O2 SAT 98%, DENIES SOB. NORMOACTIVE BSX4, ABD SOFT AND ROUND, DENIES ABD PAIN. RICKS CATHETER IN PLACE, DRAINING YELLOW URINE. SKIN IS CDI. REMAINING IN BED AT THIS TIME, WITH MILD GENERALIZED WEAKNESS. IV SITE IS CDI. DENIES ANY PAIN OR DISCOMFORT AT THIS TIME. WOUND VAC SET AT 150 MM HG. WILL CONTINUE TO MONITOR FOR ANY ABNORMAL DRAINAGE ON SURGICAL DRESSINGS AND WILL MANAGE ANY PAIN OR DISCOMFORT.
[2019-12-25 10:15] LABS: BAND NEUTROPHIL 1 % (0-10); MONOCYTE 6 % (0-7); SEGMENTED NEUTROPHILS 87 % (37-75); rbc morphology (normal/abnorm) ABNORMAL (NORMAL)
--- NOTE | 2019-12-25 10:28 | NUR ---
PATIENT DENIES ANY PAIN OR DISCOMFORT AT THIS TIME. WILL CONTINUE TO MONITOR PATIENT.
--- NOTE | 2019-12-25 16:01 | NUR ---
RECEIVED REPORT FROM JERONIMO ORTA PT RECEIVED VIA [employer] A&O X4 ON TELE 39. RLE DRESSING IN PLACE WOUND VAC IN PLACE DRAINING 200ML AT THIS TIME. RICKS DRAINING ALEX URINE TO GRAVITY. IV ON RFA PATENT AND INTACT NO RENESS OR EDEMA. ON RA @ 100% LUNGS CTA BILAT. PT DENIES ANY PAIN AT THIS TIME. ALL NEEDS ATTENDED TO. BED IN LOWEST POSITION CALL LIGHT WITHIN REACH. WILL CONTINUE TO MONITOR
--- NOTE | 2019-12-25 16:30 | NUR ---
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 Ht: 157.48cm/62in Wt: 101.775kg/223.9lbs BMI:41 Bed scale: 250.6lbs IBW: 50kg/110lbs %IBW: 203.6% ABW: 63kg UBW: 200lbs in June per pt Age: 59 Food Allergies: NFKA per pt Edema: edema noted to RLE Last BM: 12/22 Skin: Surgical wound noted to RLE Myron: 20 Per H and P (12/21), pt is a 59 yo female with PMhx of DM presents is brought to the hospital with complaints of lower back pain that radiates to the sides of her abdomen and hips bilaterally. Pt states that the back pain started 3 days ago after she fell on her bottom after losing balance. In addition, pt reports right leg pain and reports tenderness in the back of right calf as well as soreness in her thighs. 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 Pt also reports having headache and fever "in the 100s" which has subsided since. Pt admits to constipation but denies head trauma, nausea, vomiting, chest pain, abdominal pain, dysuria, hematuria, loss of motor function in UE and LE bilaterally. Pt denies recent travel, diet changes or recent sick contacts. Pt was admitted dx: Sepsis, fever possible 2/2 COVID 19, Hypotension, DMOOC, vasomotor neuropathy, hyponatremia, hypochloremia, h/o hypothyroidism, h/o depression, h/o restless leg syndrome, DVT RD Note (12/24) Pt was lying in bed during bedside visit. Pt's lunch plate was seen untouched per observation. Per pt, she had constipation, and her last BM was on 12/22. Pt reported improved appetite, and she was tolerating current diet with no chewing/swallowing difficulty. Recent weight gain was mentioned by pt, and before her weight gain, pt weighted 200lbs in June. At home, pt did not take any supplement, and pt tried to stay away from sweets and added sugar by substituting food items with diet or sugar free version. Pt denied doing any form of physical activity d/t her bad ankle. Wound vac was seen on pt's bed. Problem with: N/V/D/C: Constipated per pt Problems with: Chewing: Swallowing: none per pt Current appetite: Improved; but lunch tray untouched today Recent wt change: 23lbs of weight gain since June %wt change: 11.5% of weight gain per pt Height: 5'2" Vitamin/Supplement use: none per pt Special diet at home: Avoid added sugar per pt Physical activity: No d/t bad ankles per pt Nutrition education given (specify specific nutrition education and handout given): Education on diabetic diet was provided. Explained that as added sugar can increase pt's blood sugar, food with high carbohydrate can also increase blood sugar if not consume in moderation. Encouraged pt to maintain consistent carbohydrate intake (3-5 servings) to control her blood sugar, and also explained the benefits of whole grain instead of refined grain. Answered pt's question regarding aspartame and explain how to use nutrition label to shop for food. Written education from [place], "Type 2 Diabetes Nutrition Therapy" and "Diabetes Label Reading Tips" were provided to pt, and pt verbalized understanding. Food-drug interactions? Education given? n/a Estimated Nutritional Needs Based on adjusted body weight (63kg) Energy: 6651-3274 kcal/day (30-35 kcal/kg for sepsis, optimal wound healing) Protein: 78-94 g/day (1.25-1.5 g/kg for sepsis, optimal wound healing) Fluid: 3048-5899 mL/day (1 mL/kcal) Nutrition Diagnosis: 1. Increased energy and protein needs r/t skin integrity a/e/b pt has surgical wound and on wound vac. 2. Impaired nutrition utilization r/t endocrine dysfunction a/e/b pt elevated BG 234H, POC BG 254H on12/24, and A1C 8.9 on 12/21. Intervention 1. Recommend continue CCHO diet as tolerate 2. Recommend glucerna BID to meet high kcal and protein demand. It will provide additional 440kcal and 20g protein. 3. Recommend Oj BID for wound healing. Paged Dr. Chen, waiting for response. Monitor/Evaluate Goal: PO intake at least 75% of estimated needs (ongoing, pending clinical course outcome) Monitor: PO intake, Labs, GI function, ONS intake, Skin integrity F/U in 3-5 days as moderate risk 12/27-
[2019-12-25 17:39] VITALS: BP 149/77
--- NOTE | 2019-12-25 18:46 | NUR ---
Pt LYING BED DRESSING ON RIGHT FOOT C/D/I WOUND VAC INTACT DRAINING WELL. RICKS CATHETER DRAINING TO GRAVITY ALEX URINE NOTED. IV PATENT AND INTACT NO REDNESS OR EDEMA NOTED. ALL NEEDS ATTENDED TO. WILL ENDORSE CARE TO NIGHT RN
--- NOTE | 2019-12-25 19:30 | NUR ---
Pt. received from day shift, currently resting in bed. Pt. is a/o x4,a ble to make needs know, able to follow commands, no c/o h/a. Pt. breathing on e/u on RA, no acute distress or SOB noted. Pt. has no c/o pain or s/o discomfort at this time or c/o chest pain. Pt. wound vac dressing in tact, drainage still at 200 cc dark and red, no changes from day shift report. Pt. on tovar cath draining c/y, IV site patent, will cont. to monitor. Otherwise, pt. stable, will cont. to monitor.
[2019-12-25 21:13] VITALS: BP 128/58
--- NOTE | 2019-12-25 22:53 | NUR ---
Pt. tolerated medication well, will monitor bg level as pt. on lantus and covered tonight, no s/o acute distress, able to make needs known, will cont. to monitor.
[2019-12-26 05:38] VITALS: BP 143/75
--- NOTE | 2019-12-26 05:55 | NUR ---
Pt. stable thorughout shift, no acute distress noted. Minimal drainage on wound vac, 25cc at most change form change of shift. Pt. educated on medication, verb. understanding. Pt. c/o pain x1, medicated w/ norco as ordered. Ohterwise, pt. stable, will cont. to monitor and endorse to next shif tRN.
--- NOTE | 2019-12-26 07:05 | NUR ---
RECEIVED BEDSIDE REPORT FROM NIGHT RN. PT ASLEEP IN BED WITH EYES CLOSED. EASILY AROUSABLE. RREVEN AND UNLABORED ON RA. PT ON TELE#39. STANDARD PRECAUTION IN PLACE. HOB ELEVATED. BED RAILS UPX2. CALL LIGHT WITHIN REACH. BED LOCKEDIN LOWEST POSITION. WILL CONTINUE TO MONITOR.
[2019-12-26 07:27] LABS: BASOPHIL % 0.1 % (0-2); PLATELET COUNT 288 x10^3mcL (130-400)
[2019-12-26 07:38] LABS: CARBON DIOXIDE 26.1 mmol/L (21-32); CREATININE SERUM 1.6 mg/dL (0.6-1.0); PHOSPHOROUS 2.3 mg/dL (2.5-4.9); POTASSIUM SERUM 3.9 mmol/L (3.5-5.1)
[2019-12-26 07:55] VITALS: BP 133/66
--- NOTE | 2019-12-26 09:15 | NUR ---
DARCI TR 25.2. PHARMACY CALLED AND TOLD TO HOLD DARCI FOR TODAY.
[2019-12-26 09:34] LABS: RED CELL DISTRIBUTION WIDTH 18.4 % (11.5-14.5)
[2019-12-26 12:05] VITALS: BP 112/54
--- NOTE | 2019-12-26 14:12 | NUR ---
PT IN BED RESTING. RR EVEN AND UNLABORED ON RA. PT DENIES PAIN AT THIS TIME. HOB ELEVATED. CALL LIGHT WITHIN REACH. WOUND VAC IN TAC. ALL NEEDS MEET AT THIS TIME. WILL CONTINUE TO MONITOR.
[2019-12-26 14:50] VITALS: BP 124/82
--- NOTE | 2019-12-26 17:00 | NUR ---
PT IN BED RESTING. NO ACUTE DISTRESS. RR EVEN AND UNLABORED ON RA. PT DENIES CHEST PAIN OR PRESSURE. RICKS DRAINING TO GRAVITY. CALL LIGHT WITIH REACH. BED LOCKED IN LOWEST POSITION.
--- NOTE | 2019-12-26 19:10 | NUR ---
RECEIVED PATIENT FROM PREVIOUS SHIFT NURSE. PATIENT IN NO ACUTE DISTRESS. AWAKE, ALERT AND ORIENTED X4. DENIES ANY PAIN AT THIS TIME. TELE #39 IN [place], NSR. DENIES ANY CHEST PAIN OR CHEST PRESSURE. EVEN AND UNLABORED BREATHING NOTED ON ROOM AIR. RICKS CATH IN PLACE DRAINING TO GRAVITY, WITH YELLOW COLORED URINE. RFA IV WNL. FLUSHING WELL AND GOOD BLOOD RETURN. WOUND VAC IN PLACE, INTACT/WNL. BED IN LOWEST PPOSITION. CALL LIGHT WITHIN REACH.
--- NOTE | 2019-12-26 19:22 | NUR ---
ENDORSED CARE TO NIGHT RN.
--- NOTE | 2019-12-26 21:25 | NUR ---
PATIENT GIVEN ORANGE JUICE WITH HER NIGHT MEDICATIONS.
[2019-12-26 21:33] VITALS: BP 159/84
--- NOTE | 2019-12-27 | NUR ---
PATIENT C/O RLE PAIN. 09/13. MEDICATED PER JUL.
--- NOTE | 2019-12-27 03:42 | NUR ---
PATIENT SLEEPING. NO C/O PAIN AT THIS TIME. WILL CONTINUE TO ASSESS PAIN. PATIENT INSTRUCTED TO USE CALL LIGHT NEEDED. AND WAS ADVISED THAT WE SHOULD CONTROL PAIN AND NOT LET IT GET TO 10/10. EVEN AND UNLABORED BREATHING NOTED. BED IN LOWES POSITION. CALL LIGHT WITHIN REACH. SIDE RAILS UP X2.
[2019-12-27 04:33] VITALS: BP 167/78
--- NOTE | 2019-12-27 05:24 | NUR ---
NOTIFIED ABOUT PATIENTS ELEVATED BP. 167/78, NO FURTHER ORDERS AT THIS TIME. WILL FOLLOW UP.
--- NOTE | 2019-12-27 06:00 | NUR ---
D50 PUSHED FOR BS OF 36 AND 31. CODE: [phone] [id number]. WITNESSED BY MARIVEL DIAZ. BS NOW 93 AFTER PUSHING D50. WILL CONTINUE TO MONITOR.
[2019-12-27 06:29] VITALS: BP 160/81
--- NOTE | 2019-12-27 06:40 | NUR ---
PATIENTS BS REASSESSED. BS 97.
--- NOTE | 2019-12-27 07:20 | NUR ---
RECIEVED BEDSIDE REPORT FROM NIGHT RN. PT IN BED RESTING. NO ACUTE DISTRESS. RR EVEN AND UNLABORED. IV IN L HAND CDI WITH NO REDNESS OR SWELLING. STANDARD PRECAUTIONS. PT ON TELE#39. PT NPO SINCE MIDNIGHT. CALL LIGHT WITHIN REACH. BED LOCKED IN LOWEST POSITION. WILL CONTINUE TO MONITOR.
[2019-12-27 07:46] LABS: CALCIUM 8.1 mg/dL (8.5-10.1); CARBON DIOXIDE 26.8 mmol/L (21-32); CREATININE SERUM 1.1 mg/dL (0.6-1.0); MAGNESIUM 1.8 mg/dL (1.8-2.4); PHOSPHOROUS 2.2 mg/dL (2.5-4.9); POTASSIUM SERUM 3.9 mmol/L (3.5-5.1)
[2019-12-27 07:50] LABS: PLATELET COUNT 305 x10^3mcL (130-400)
--- NOTE | 2019-12-27 07:58 | NUR ---
BS REASSESED AT 71.
[2019-12-27 08:14] VITALS: BP 171/89
[2019-12-27 08:19] LABS: RED CELL DISTRIBUTION WIDTH 18.2 % (11.5-14.5)
--- NOTE | 2019-12-27 09:15 | NUR ---
INTERLINE CLERK AT BEDSIDE. PT CO DIZZNESS, SHAKENESS. BS REASSESSED. BS AT 43/47. MD IN OR ANESTHESIOLOGIST DR QUISPE MADE AWARE SAID TO GIVE HALF OF THE D50 AND OTHER HALF TO BE GIVEN IN OR. PT TAKEN TO OR VIA GURNEY ON RA.
--- NOTE | 2019-12-27 10:40 | NUR ---
ECHOCARDIOGRAM PENDING-PATIENT NOT IN ROOM
--- NOTE | 2019-12-27 12:02 | NUR ---
PT RETURNED FROM OR VIA GURNEY. PT IN NO ACUTE DISTRESS. RR EVEN AND UNLABORED ON RA. WOUND VAC INTACT. WILL CONTINUE TO MONITOR PT BS. CALL LIGHT WITHIN REACH. WILL CONTINUE TO MONITOR.
[2019-12-27 12:05] LABS: BAND NEUTROPHIL 5 % (0-10); METAMYELOCTE 1 % (0-2); MONOCYTE 4 % (0-7); SEGMENTED NEUTROPHILS 81 % (37-75); rbc morphology (normal/abnorm) ABNORMAL (NORMAL)
[2019-12-27 12:06] LABS: PLATELET MORPHOLOGY LARGE PLATELET SEEN
[2019-12-27 12:27] VITALS: BP 140/74
--- NOTE | 2019-12-27 15:44 | NUR ---
PT IN BED RESTING WITH EYES CLOSED. AROUSABLE WITH VOICE. NO ACUTE DISTRESS. D5 NS RUNNING. IV IN LEFT HAND CDI WITH NO REDNESS OR SWELLING. HON ELEVATED. CALL LIGHT WITHIN REACH. WILL CONTINUE TO MONITOR.
[2019-12-27 16:14] VITALS: BP 113/85
--- NOTE | 2019-12-27 17:37 | NUR ---
PT FULLY AWAKE AND ALERT FROM SX. RR EVEN AND UNLABORED ON 2L NC. BS 99 AT 1700. PT RE ORIENTED TO ROOM AND PLACE. PT AOX4. BED RAILS UPX2. CALL LIGHT WITHIN REACH. BED LOCKED IN LOWEST POSITION. WILL CONTINUE TO MONITOR.
--- NOTE | 2019-12-27 19:15 | NUR ---
RECEIVED PATIENT FROM PREVIOUS SHIFT NURSE. PATIENT IN NO ACUTE DISTRESS. AWAKE, ALERT AND ORIENTED X4. PATIENT DENIES ANY PAIN AT THIS TIME. TELE #[address], SR. HR 114. NO C/O CHEST PAIN OR CHEST PRESSURE. PATIENT ON ROOM AIR, EVEN AND UNLABORED BREAHTING NOTED. DENIES ANY SOB. RICKS DRAINING TO GEAVITY, YELLOW URINE NOTED. DRESSING TO RIGHT LEG CDI. LH IV WNL. GOOD BLOOD RETURN, FLUSHIG WELL. FLUIDS INFUSING WELL. BED IN LOWEST POSITION. CALL LIGHT WITHIN REACH. SIDE RAILS UP X2.
--- NOTE | 2019-12-27 19:16 | NUR ---
ENDORSE CARE TO NIGHT RN. NO REST IN BED IN NO ACUTE DISTRESS.
[2019-12-27 19:53] VITALS: BP 105/54
--- NOTE | 2019-12-27 22:33 | NUR ---
PATIENTS C/O 8/10 PAIN ON HER RIGHT LEG. PATIENTS BP 148/62 HR 113. PATIENT MEDICATED WITH MORPHINE PER JUL.
[2019-12-28 05:06] VITALS: BP 120/61
--- NOTE | 2019-12-28 05:49 | NUR ---
MANAGING PATIENTS PAIN PER MAR WITH MORPHINE AND NORCO INDICATED. PATIENT CURRENTLY SLEEPING.
--- NOTE | 2019-12-28 06:56 | NUR ---
PATIENT SLEEPING. NO C/O PAIN AT THIS TIME. EVEN AND UNLABORED BREATHING NOTED. BED IN LOWEST POSITION. CALL LIGHT WITHIN REACH. SIDE RAILS UP X2. WILL ENDORSE CARE TO ONCOMING SHIFT. WILL CONTINUE TO MONITOR.
--- NOTE | 2019-12-28 07:05 | NUR ---
RECIEVED BEDSIDE REPORT FROM NIGHT RN. PT IN BED RESTING WITH EYES CLOSED EASILY AROUSABLE. RR EVEN AND UNLABORED ON RA. PT APPEARS TO NOT BE IN ANY PAIN AT THIS TIME. PT ON TELE#39. BED RAILS UPX2. CALL LIGHT WITHIN REACH. BED LOCKED IN LOWEST POSITION. WILL CONTINUE TO MONITOR.
[2019-12-28 08:00] LABS: PLATELET COUNT 312 x10^3mcL (130-400)
[2019-12-28 08:23] LABS: CALCIUM 7.4 mg/dL (8.5-10.1); CARBON DIOXIDE 28.6 mmol/L (21-32); CREATININE SERUM 1.5 mg/dL (0.6-1.0); MAGNESIUM 1.8 mg/dL (1.8-2.4); PHOSPHOROUS 3.7 mg/dL (2.5-4.9); POTASSIUM SERUM 4.3 mmol/L (3.5-5.1)
[2019-12-28 08:58] VITALS: BP 113/65
[2019-12-28 09:36] LABS: RED CELL DISTRIBUTION WIDTH 18.2 % (11.5-14.5)
--- NOTE | 2019-12-28 09:56 | NUR ---
WBC 21.5. MADE AWARE.
[2019-12-28 12:55] VITALS: BP 131/56
[2019-12-28 13:58] LABS: BAND NEUTROPHIL 8 % (0-10); METAMYELOCTE 1 % (0-2); MONOCYTE 4 % (0-7); MYELOCYTE 1 % (0-2); SEGMENTED NEUTROPHILS 77 % (37-75); rbc morphology (normal/abnorm) ABNORMAL (NORMAL)
[2019-12-28 13:59] LABS: PLATELET MORPHOLOGY LARGE PLATELET SEEN; burr cell (echinocyte) 2+
--- NOTE | 2019-12-28 14:00 | NUR ---
PT IN BED RESTING. NO ACUTE DISTRESS. RR EVEN AND UNLABORED ON RA. PT DENIES PAIN AT THIS TIME. HOB ELEVATED. BED RAILS UPX2. CALL LIGHT WITHIN REACH. BED LOCKED IN LOWEST POSITION. WILL CONTINUE TO MONITOR.
[2019-12-28 16:43] VITALS: BP 119/57
--- NOTE | 2019-12-28 19:10 | NUR ---
RECEIVED PATIENT FROM PREVIOUS SHIFT NURSE. PATIENT IN NO ACUTE DISTRESS. AWAKE, ALERT AND ORIENTED X4. DENIES ANY PAIN AT THIS TIME. TELE #[address], SR. HR 101. PATIENT DENIES ANY CHEST PAIN OR CHEST PRESSURE. EVEN AND UNLABORED BREATHING NOTED. DENIES ANY SOB, ON ROOM AIR. RICKS CATH DRAINING TO GRAVITY. YELLOW URINE NOTED. RIGHT LEG DRESSING CDI. WOUND VAC WNL. RIGHT FOREARM IV WNL. FLUSHING WELL, GOOD BLOOD RETURN. BED IN LOWEST POSITION. CALL LIGHT WITHIN REACH. SIDE RAILS UP X2.
--- NOTE | 2019-12-28 19:21 | NUR ---
ENDORSED CARE TO NIGHT RN.
[2019-12-28 21:03] VITALS: BP 125/61
[2019-12-29 05:08] VITALS: BP 143/63
--- NOTE | 2019-12-29 05:58 | NUR ---
BP 135/61, HR 107. PATIENT MEDICATED WITH MORPHINE PER MAR. PAIN RATED 8/10
[2019-12-29 07:34] LABS: PLATELET COUNT 310 x10^3mcL (130-400)
[2019-12-29 07:55] LABS: RED CELL DISTRIBUTION WIDTH 18.7 % (11.5-14.5)
--- NOTE | 2019-12-29 08:05 | NUR ---
AT 0725 - RECEIVED PATIENT FROM NIGHT NURSE. AWAKE, ALERT AND ORIENTED. MONITOR SHOWING SINUS TACH; RATE 103. IV SALINE LOCKED. WOUND VAC TO RLE PATENT AT 150 SUCTION. RICKS CATHETER DRAINGIN YELLOW URINE. PATIENT DECLINED BREAKFAST AT THIS TIME.
--- NOTE | 2019-12-29 08:10 | NUR ---
RECEIVED CALL FROM LAB WITH WBC OF 17.4. THIS IS A DOWNWARD TREND; NOT REPORTED AT THIS TIME.
[2019-12-29 08:13] LABS: CARBON DIOXIDE 25.6 mmol/L (21-32); CREATININE SERUM 1.5 mg/dL (0.6-1.0); PHOSPHOROUS 3.5 mg/dL (2.5-4.9); POTASSIUM SERUM 4.6 mmol/L (3.5-5.1)
[2019-12-29 08:41] VITALS: BP 127/62
--- NOTE | 2019-12-29 10:39 | NUR ---
SEEN BY DR FELIPE AND MEDICAL TEAM DOCTORS DURING MORNIGN ROUNDS. DR CAMPOS EXPLAINED PLAN OF TREAMTENT TO PATIENT USING [employer] MEDICAL CERTIFICATION SPECIALIST. PLAN FOR PT TO STAY IN HOSPITAL FOR 2 MORE DAYS. PATIENT WILL THEN BE DISCHARGED WITH EITHER WOUND VAC AT HOME OR SNF. HE WILL REQUIRE SEVERAL WEEKS OF IV ANTIBIOTICS AND WILL NEED A PICC LINE PLACEMENT.
[2019-12-29 10:49] LABS: MONOCYTE 3 % (0-7); SEGMENTED NEUTROPHILS 83 % (37-75)
[2019-12-29 10:51] LABS: rbc morphology (normal/abnorm) ABNORMAL (NORMAL)
[2019-12-29 12:08] VITALS: BP 151/77
--- NOTE | 2019-12-29 13:06 | NUR ---
PATIENT IS BACK IN ROOM FOLLOWING CT SCAN OF RLE. NOW EATING LUNCH. LAST BLOOD GLUCOSE = 95. WOUND VAC PATENT AT 150 mm SUCTION. DRESSING IS DRY AND INTACT.
--- NOTE | 2019-12-29 14:10 | NUR ---
URINE COLLECTED AND TAKEN TO LAB FOR UA
[2019-12-29 16:27] LABS: UA SPECIFIC GRAVITY 1.015 (1.005-1.035); microscopic required? YES; urine erythrocyte TRACE (NEGATIVE)
[2019-12-29 16:28] VITALS: BP 147/70
--- NOTE | 2019-12-29 18:44 | NUR ---
VSS. AFEBRILE. WOUND VAC HAS HAD 50 ML DARK RED SEROSANGUINOUS OUTPUT. DRESSING REMAINS DRY AND INTACT. DENIES ANY PAIN. PATIENT HAS REDUCED APPETITE. ENCOURAGED NUTRITIONAL SUPPLIEMENT. URINE OUTPUT 800 ML THIS SHIFT. WILL ENDORSE CARE TO NIGHT NURSE.
--- NOTE | 2019-12-29 20:10 | NUR ---
PATIENT RESTING IN BED, A/O X4, VERBALLY RESPONSIVE. BREATHING E/U ON ROOM AIR, SPO2 97%, DENIES SOB. TELE #39, SINUS TACHY, HR 114, DENIES CHEST PAIN. ABD SOFT AND ROUND. S/P I/D OF R LEG, DRESSED WTIH SPLINT, CDI, WITH WOUND VAC IN PLACE RUNNING @ 150 MMHG, TOTAL OF 100 ML DARK RED DRAINAGE IN WOUND VAC CHAMBER. COLLECTED RICKS INTACT, DRAINING YELLOW URINE, NO KINKS OR DEPENDENT LOOPS. C/O OF 5/10 PAIN IN R LEG WHICH RADIATES TO LOWER BACK, WILL GIVE PAIN MEDICATION PRN. IV RFA INTACT, FLUSHED AND SALINE LOCKED. CALL LIGHT WITHIN REACH, BED IN LOWEST POSITION. WILL CONTINUE TO MONITOR.
--- NOTE | 2019-12-29 20:50 | NUR ---
CALLED RESIDENT PHYSICIAN THERE IS NO ACTIVE PAIN MEDICATION PRN ORDER @ THIS TIME, THEY STATED THAT THEY WILL PLACE AN ORDER.
[2019-12-29 20:52] VITALS: BP 145/54
--- NOTE | 2019-12-29 21:15 | NUR ---
PATIENT IS SCHEDULED TO HAVE SURGERY FOR RIGHT BKA, I+d AND POSSIBLE ABOVE THE KNEE AMPUTATION AND IS TO BE NPO AFTER MIDNIGHT TONIGHT. PATIENT'S BLOOD SUGAR 138 AND IS CURRENTLY SALINE LOCKED. CALLED RESIDENT PHYSICIAN, DR. LIZ MADE AWARE, SHE STATED TO HOLD SCHEDULED LANTUS [address] THAT SHE [address] PL[address] ORDER FOR IV FLUIDS.
--- NOTE | 2019-12-29 21:35 | NUR ---
RESIDENT PHYSICIAN PLACED ORDER FOR NS IV FLUID, CALLED DR. SHELLEY TO CLARIFY IF SHE WILL LIKE TO HAVE PATIENT ON NS IV FLUID AND CONDUCT A RANDOM ACCUCHECK AROUND 0000 LATER TONIGHT OR TO HAVE PATIENT ON IV FLUID WITH DEXTROSE. DR. SHELLEY CONFIRMED FOR PATIENT TO REMAIN ON NS IV FLUID FOR NOW AND TO CHECK ACCUCHECK LATER TONIGHT.
--- NOTE | 2019-12-29 21:45 | NUR ---
PATIENT IS SCHEDULED TO HAVE R BKA, I+D AND POSSIBLE ABOVE THE KNEE AMPUTATION TOMORROW @ 1330. PATIENT STATED THAT THE PHYSICIAN SPOKE WITH HER EARLIER TODAY REGARDING THE PROCEDURE AND DISCUSSED THE RISKS AND BENEFITS OF PROCEDURE. PATIENT SIGNED THE INFORMED CONSENT FOR SURGERY, AND I WITNESSED HER CONSENT. PATIENT ALSO MADE AWARE THAT SHE IS NOT TO EAT OR DRINK ANYTHING AFTER MIDNIGHT TONIGHT IN PREPARATION FOR SURGERY TOMORROW, PATIENT VERBALIZED UNDERSTANDING.
--- NOTE | 2019-12-30 00:50 | NUR ---
REASSESSED PATIENT'S BLOOD SUGAR @ 118, CURRENTLY NPO IN PREPARATION FOR SURGERY LATER TODAY, AND INFUSING NS @ 100 ML/HR. DR. LEMUS MADE AWARE, SHE STATED THAT SHE WILL CONSULT WITH SENIOR RESIDENT IF PATIENT WILL BE PLACED ON ANOTHER IV FLUID. SHE STATED THAT SHE WILL ALSO PLACE ORDER FOR PT/PTT AND CHG WIPES.
--- NOTE | 2019-12-30 03:40 | NUR ---
FOLLOWED UP WITH DR. LEMUS REGARDING IV FLUID, SHE STATED TO KEEP PATIENT ON NS FOR NOW AND TO LET HER KNOW THE RESULT OF THE NEXT ACCUCHECK WHICH IS SCHEDULED @0630.
[2019-12-30 05:16] VITALS: BP 149/69
--- NOTE | 2019-12-30 05:55 | NUR ---
PATIENT RESTING IN BED, BREATHING E/U ON ROOM AIR, SPO2 94%. TELE #39, HR 104, SINUS TACHY, DENIES CHEST PAIN. S/P I+D R LEG, DRESSED WITH SPLINT, CDI, WITH WOUND VAC RUNNING 150 MMHG, TOTAL 60 ML OF DARK RED DRAINAGE COLLECTED DURING SHIFT, C/O OF R LEG PAIN 08/14, GAVE NORCO PRN PER EMAR. SCHEDULED FOR SURGICAL PROCEDURE OF R BKA, I+D AND POSSIBLE ABOVE KNEE AMPUTATION, NPO SINCE MIDNIGHT, SURGICAL CONSENT SIGNED, STARTED SURGICAL CHECKLIST. RICKS INTACT, PERFORMED RICKS CARE, DRAINED TOTAL 100 ML YELLOW URINE DURING SHIFT. CALL LIGHT WITHIN REACH, ALL NEEDS MET, SAFETY PRECAUTIONS MAINTAINED THROUGHOUT SHIFT. WILL ENDORSE CARE TO DAY NURSE.
--- NOTE | 2019-12-30 06:01 | NUR ---
CALLED RESIDENT PHYSICIAN, DR. LEMUS MADE AWARE OF PATIENT'S BS LEVEL OF 94. SHE STATED THAT SHE WILL CHECK WITH SENIOR RESIDENTS IF SHE WILL CHANGE IV FLUIDS.
[2019-12-30 07:20] LABS: CALCIUM 8.1 mg/dL (8.5-10.1); CARBON DIOXIDE 25.9 mmol/L (21-32); CREATININE SERUM 1.6 mg/dL (0.6-1.0); MAGNESIUM 1.9 mg/dL (1.8-2.4); PHOSPHOROUS 3.5 mg/dL (2.5-4.9); POTASSIUM SERUM 4.3 mmol/L (3.5-5.1)
[2019-12-30 07:24] LABS: BASOPHIL % 0.3 % (0-2); PLATELET COUNT 394 x10^3mcL (130-400)
--- NOTE | 2019-12-30 08:30 | NUR ---
PATIENT STATES THAT SHE WANTS TO SLEEP AT THIS TIME SO THAT SHE DOES NOT THINK ABOUT THE SURGERY. OTHERWISE, PATIENT IS CALM AND COOPERATIVE AT THIS TIME. WILL CONTINUE TO MONITOR PATIENT.
[2019-12-30 08:31] VITALS: BP 156/75
--- NOTE | 2019-12-30 10:23 | NUR ---
GAVE REPORT TO OR NURSE AT THIS TIME. ALL QUESTIONS AND CONCERNS HAVE BEEN ADDRESSED. WILL CONTINUE TO MONITOR PATIENT.
--- NOTE | 2019-12-30 11:17 | NUR ---
CHG WIPES HAVE BEEN DONE. PATIENT IS CURRENTLY LYING SUPINE AT THIS TIME AND DENIES ANY PAIN OR DISCOMFORT AT THIS TIME. WILL CONTINUE TO MONITOR PATIENT.
--- NOTE | 2019-12-30 12:57 | NUR ---
PATIENT HAS BEEN TRANSFERRED TO THE OR FOR HER SURGERY TODAY. ALL QUESTIONS AND CONCERNS HAVE BEEN ADDRESESED FOR THE OR STAFF AND THE PATIENT. WILL CONTINUE TO MONITOR PATIENT.
--- NOTE | 2019-12-30 13:36 | NUR ---
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 Labs: (12/29): B/C: 19/1.6, Glu: 107, (12/22) WBC 11.6H, H/H 11.1/27L, (12/24) Na 135L, BUN 33H, Cr 1.5H, BH, POC BG 254H, CRP 14.8H, albumin 1.6L, (12/21) A1C 8.9H, Ferritin, 303.3H, Meds: Cymbalta, decadron, Colace, [place], Humulin, Synthroid, Zosyn, Lipitor, Mirapex, Lantus Diet: NPO as of 12/29 for surgery, CCHO diet before PO intake since admission: variable, 30-100%, avg 72% Weights: (12/23/19) 101.8kg Skin: wound vac in place, I&D performed yesterday on RLE Myron: 18 Edema: LUE nonpitting edema GI: last BM 12/23/19 RD Note: per MD progress note amputation of the right leg (BKA) scheduled today, pt is NPO, pt not at bedside when visited Estimated Nutritional Needs Based on adjusted body weight (63kg) Energy: 3957-3241 kcal/day (30-35 kcal/kg for sepsis, optimal wound healing) Protein: 78-94 g/day (1.25-1.5 g/kg for sepsis, optimal wound healing) Fluid: 7822-6821 mL/day (1 mL/kcal) Nutrition Diagnosis: 1. Increased energy and protein needs r/t skin integrity a/e/b pt has surgical wound and on wound vac. 2. Impaired nutrition utilization r/t endocrine dysfunction a/e/b pt elevated BG 234H, POC BG 254H on12/24, and A1C 8.9 on 12/21. Intervention 1. Recommend resuming CCHO diet as tolerated 2. Recommend resuming glucerna BID to meet high kcal and protein demand. It will provide additional 440kcal and 20g protein. 3. Recommend resuming Oj BID for wound healing. Monitor/Evaluate Goal: Pt consuming at least 75% of estimated needs Monitor: Po intake, Labs, GI function, body weight, skin integrity F/U in 2-3 days as high risk
--- NOTE | 2019-12-30 18:09 | NUR ---
PATIENT REMAINS IN OR AT THIS TIME. WILL CONTINUE TO AWAIT FOR PATIENT'S ARRIVAL.
--- NOTE | 2019-12-30 18:57 | NUR ---
PATIENT ARRIVED FROM OR AT THIS TIME. PATIENT IS IN A PLEASANT MOOD. PATIENT DENIES ANY PAIN OR DISCOMFORT AT THIS TIME WELL. POST-SURGERY, PATIENT HAS BKE RLE AMPUTATION COVERED IN SURGICAL DRESSINGS APPLIED BY DOCTOR AND IS CDI. GAVE PATIENT JELLO AND DIET [place] PER PATIENT REQUEST. WILL CONTINUE TO MONITOR PATIENT.
--- NOTE | 2019-12-30 20:00 | NUR ---
RECEIVED PT ALERT AND ORIENTED X4, BREATHING REGULAR AND UNLABORED ON ROOM AIR. PT HAS WOUND VAC IN PLACE TO RLE FOLLOWING RIGHT BKA TODAY. PERIPHERAL PULSES INTACT. PIV PATENT, NO SIGNS OF INFILTRATION, SAFETY PRECAUTIONS IN PLACE. WILL ENDORSE CARE TO ONCOMING NURSE.
[2019-12-30 20:50] VITALS: BP 119/53
--- NOTE | 2019-12-30 21:30 | NUR ---
PATIENT RECEIVED FROM RACHANA ORTA FOR CONTINUATION CARE. PATIENT IS AWAKE, ALERT, ORIENTED X4 IN BED. RESPIRATION EVEN AND UNLABORED, ON ROOM AIR. ONGOING 0.9% NS AT 100 CC/HR INFUSING WELL AT THE R HAND. WOUND VAC TO R LOWER EXTREMITY IN PLACED. RICKS CATHETER TO GRAVITY IN PLACED. ON TELE #39. WILL CONTINUE TO MONITOR.
[2019-12-31 06:05] VITALS: BP 101/35
--- NOTE | 2019-12-31 06:13 | NUR ---
PATIENT RESTING IN BED. RESPIRATION EVEN AND UNLABORED, ON ROOM AIR. DENIES PAIN AT THIS TIME. IV SITE PATENT AND INTACT. DRESSING TO RLE DRY AND INTACT. WOUND VAC INTACT WITH 50 ML OF SEROSANGUINOUS DRAINAGE. BILATERAL UPPER EXTREMITIES NOTED. RICKS CATHETER PATENT AND INTACT. ASSISTED WITH NEEDS. SAFETY OBSERVED. PLACED BED IN THE LOWEST POSITION. PLACED CALL LIGHT WTIHIN REACH AT ALL TIMES.
[2019-12-31 06:48] LABS: CALCIUM 7.6 mg/dL (8.5-10.1); CARBON DIOXIDE 21.7 mmol/L (21-32); CREATININE SERUM 1.8 mg/dL (0.6-1.0); MAGNESIUM 1.7 mg/dL (1.8-2.4); PHOSPHOROUS 4.6 mg/dL (2.5-4.9); POTASSIUM SERUM 4.9 mmol/L (3.5-5.1)
--- NOTE | 2019-12-31 07:10 | NUR ---
SEEN AOX4, NOT IN DISTRESS TELE 39, NSR, PALPABLE PULSES, BUE EDEMA, NON PITTING, CTA ON BLF, +BS, RICKS CATHETER IN PLACE, GENERALIZED WEAKNESS, R BKA CDI DRESSING WITH WOUND VACUUM INTACT AT 75MMHG, NO PAIN AT THIS TIME, IV INTACT AND PATENT, RFA, 24G, CALL LIGHT WITHIN REACH , BED AT LOWEST POSITION, SIDE RAILS UP.
[2019-12-31 07:45] LABS: PLATELET COUNT 381 x10^3mcL (130-400)
[2019-12-31 07:49] LABS: RED CELL DISTRIBUTION WIDTH 19.2 % (11.5-14.5)
[2019-12-31 08:10] VITALS: BP 93/48
--- NOTE | 2019-12-31 08:40 | NUR ---
MEDICATIONS GIVEN PER EMAR. ATENOLOL ON HOLD . BP 93/48. NAFCILLIN INFUSING WELL AT 100CC/HR. NO REDNESS OR SWELLING.
--- NOTE | 2019-12-31 09:00 | NUR ---
ASSISTED PATIENT WITH BM. BM BROWN , SOFT . NO SIGNS OF BLEED
--- NOTE | 2019-12-31 09:38 | NUR ---
RFA IV STILL PATENT AND INTACT, 24G. INSERTED IV AT LFA 22G, INTACT AND PATENT, NO REDNESS OR SWELLING.
--- NOTE | 2019-12-31 10:53 | NUR ---
NORCO PO GIVEN FOR R LEG PAIN 12/14
[2019-12-31 11:05] LABS: BAND NEUTROPHIL 2 % (0-10); MONOCYTE 4 % (0-7); SEGMENTED NEUTROPHILS 86 % (37-75); burr cell (echinocyte) 1+; rbc morphology (normal/abnorm) ABNORMAL (NORMAL)
--- NOTE | 2019-12-31 11:12 | NUR ---
ACCUCHECK DONE WITH CBG 144. NO INSULIN REQUIRED. NAFCILLIN IVPB INFUSING WELL AT 100CC/HR. NO REDNESS OR SWELLING.
--- NOTE | 2019-12-31 11:48 | NUR ---
DR HOLLOWAY MADE AWARE OF PATIENT'S SUDDEN DROP IN H/H 7.2 WITH LOW BP 93/44. NO SUBJECTIVE SYMPTOMS NOTED. PER DR HOLLOWAY, HE WILL WAIT FOR CBC THIS AFTERNOON AND CONSIDER DOING BLOOD TRANSFUSION PENDING CBC RESULTS. DR HOLLOWAY MADE AWARE OF CA AND MG RESULTS
--- NOTE | 2019-12-31 12:21 | NUR ---
NS INFUSING WELL AT 250CC/HR ONE TIME. NO REDNESS OR SWELLING.
[2019-12-31 12:28] VITALS: BP 95/44
[2019-12-31 12:53] LABS: BASOPHIL % 0.2 % (0-2); PLATELET COUNT 357 x10^3mcL (130-400)
[2019-12-31 12:55] LABS: RED CELL DISTRIBUTION WIDTH 19.2 % (11.5-14.5)
--- NOTE | 2019-12-31 13:02 | NUR ---
DR COBB MADE AWARE OF HGB 6.7. ORDERS RECEIVED.
[2019-12-31 13:36] LABS: burr cell (echinocyte) 1+; rbc morphology (normal/abnorm) ABNORMAL (NORMAL)
--- NOTE | 2019-12-31 14:42 | NUR ---
TYLENOL PO AND BENADRYL PO GIVEN.
--- NOTE | 2019-12-31 15:10 | NUR ---
BLOOD TRANSFUSION VERIFIED WITH MARIVEL LUND WITNESS. TRANSFUSION STARTED. NO IMMEDIATE HYPERSENSITIVITY REACTIOON
[2019-12-31 16:04] VITALS: BP 105/39
--- NOTE | 2019-12-31 16:11 | NUR ---
SPOKE WITH DR CALVO, PER DR CALVO, PLEASE HOLD LASIX IF BLOOD PRESSURE IS LOW
--- NOTE | 2019-12-31 17:07 | NUR ---
NAFCILLIN INFUSING WELL AT 100CC/HR. NO REDNESS OR SWELLING.
--- NOTE | 2019-12-31 17:12 | NUR ---
BLOOD TRANSFUSION GIVEN. VITAL SIGNS 94/46 , 98.9F, HR 87, RR 20, O2 SAT 93%. PATIENT COMPLAINS OF PAIN AT R LEG. UNABLE TO GIVE NORCO DUE TO LOW BP.
--- NOTE | 2019-12-31 17:15 | NUR ---
CBG 145. NO INSULIN REQUIRED
--- NOTE | 2019-12-31 18:08 | NUR ---
TYLENOL PO AND BENADRYL PO GIVEN PRIOR TO BLOOD TRANSFUSION.
--- NOTE | 2019-12-31 18:35 | NUR ---
2ND UNIT OF PRBC TRANSFUSION STARTED. V/S 94/56, HR 91, O2 SAT 99%, RR 20, 98.0F. NO HYPERSENSITIVITY REACTION NOTED.
--- NOTE | 2019-12-31 19:10 | NUR ---
RECEIVED REPORT FROM LAURA ORTA. PT IS AAOX4 AND DENIES GARCIA/DIZZINESS. PT ON TELE #39, NSR WITH ELEV T. PT DENIES CP/PRESSURE. PT PULSES PALPABLE AND CAP REFILL <3 SEC. PT HAS EDEMA TO BUE. PT LUNG SOUNDS CTA ON RA. PT BREATHING E/U AND DENIES SOB OR RESP DISTRESS. PT ABD SOFT/ROUND WITH ACTIVE BS X4. PT DENIES N/V/C/D. PT HAS RICKS CATH IN PLACE DRAINING YELLOW URINE. PT HAS GENERALIZED WEAKNESS TO RLE. PT HAS RIGHT BKA S/P I&D WITH WOUND VAC IN PLACE. PT DENIES PAIN OR DISCOMFORT AT THIS TIME. PT IV PATENT/INTACT. BLOOD TRANSFUSING AT THIS TIME. PT DENIES ANY ADVERSE RXN. ALL NEEDS MET. CALL LIGHT WITHIN REACH. BED IN LOWEST POSITION. SIDE RAILS X2 UP. WILL CONTINUE TO MONITOR.
--- NOTE | 2019-12-31 19:12 | NUR ---
DR KELLEY MADE AWARE OF PATIENT'S BP . PER DR KELLEY, THERE IS NOT MUCH DRAINAGE FROM R LEG WOUND VACUUM. WE WILL CONTINUE WITH SURGERY TOMORROW FOR WOUND CLOSURE.
--- NOTE | 2019-12-31 19:16 | NUR ---
FOLLOWED UP WITH LAB REGARDING URINE SPECIMEN AGAIN. PER [facility], YOU WILL HAVE TO COLLECT URINE SINCE IT HAS BEEN MORE THAN 24HOURS. URINE CULTURE SPECIMEN AT PATIENT'S BEDSIDE . PATIENT INSTRUCTED TO CALL RN ONCE READY.
[2019-12-31 20:27] VITALS: BP 94/47
[2019-12-31 21:40] VITALS: BP 101/62
--- NOTE | 2019-12-31 21:40 | NUR ---
PT SECOND UNIT OF PRBC TRANSFUSION COMPLETE AT THIS TIME. POST V/S: T 96.9, HR 91, BP 94/55 (68), RR 20, PO2 99% RA. RETOOK BP AGAIN AND REPORTED TO BE 101/62 (75). BENADRYL AND TYLENOL PO GIVEN AT THIS TIME PER EMAR. PT STATED THAT BLISTERS TO LH ARE NEW AND HAS NO IDEA WHERE THEY CAME FROM. PICTURES WERE TAKEN AND PLACED IN CHART. WILL MAKE AWARE.
--- NOTE | 2020-01-01 | NUR ---
PT RESTING COMFORTABLY WITH EYES CLOSED, EASILY AROUSABLE. NO ACUTE DISTRESS NOTED. PT BREATHING E/U ON RA. NAFCILLIN IVPB INFUSING WELL AT 100ML/HR. ALL NEEDS MET. CALL LIGHT WITHIN REACH. BED IN LOWEST POSITION. SIDE RAILS X2 UP. WILL CONTINUE TO MONITOR.
[2020-01-01 00:37] LABS: BASOPHIL % 0.9 % (0-2)
[2020-01-01 00:44] LABS: RED CELL DISTRIBUTION WIDTH 16.5 % (11.5-14.5)
[2020-01-01 00:45] LABS: PLATELET COUNT 550 x10^3mcL (130-400)
[2020-01-01 00:46] LABS: rbc morphology (normal/abnorm) ABNORMAL (NORMAL)
--- NOTE | 2020-01-01 01:20 | NUR ---
RECEIVED CRITICAL LAB HGB 6.8. MADE DR. DC AWARE. ORDER FOR H&H WILL BE ORDERED AGAIN.
[2020-01-01 05:30] VITALS: BP 121/49
--- NOTE | 2020-01-01 06:26 | NUR ---
PT RESTED COMFORTABLY DURING THE NIGHT, EASILY AROUSABLE. PT BREATHING E/U ON RA. PT DENIES SOB OR RESP DISTRESS. PT DENIES CP/PRESSURE. NO ACUTE DISTRESS NOTED DURING THE NIGHT. PT IV TO RFA AND LW PATENT/INTACT. CALL LIGHT WITHIN REACH. BED IN LOWEST POSITION. SIDE RAILS X2 UP. WILL CONTINUE TO MONITOR.
--- NOTE | 2020-01-01 07:09 | NUR ---
ENDORSED CARE TO LAURA ORTA. ALL QUESTIONS AND CONCERNS ANSWERED.
[2020-01-01 07:10] LABS: BASOPHIL % 0.1 % (0-2); PLATELET COUNT 370 x10^3mcL (130-400)
--- NOTE | 2020-01-01 07:10 | NUR ---
SEEN AOX4, NOT IN DISTRSS, TELE 39, SR WITH ELEVATED TWAVE, PALPABLE PULSES, +2 BUE EDEMA, CTA ON BLF, +BS, RICKS CATHETER IN PLACE, GENERALIZED WEAKNESS, R BKA, CDI DRESSING WITH WOUND VACUUM IN PLACE AT 75MMHG, NO PAIN AT THIS TIME, IV INTACT AND PATENT TO LW , RFA, NO REDNESS OR SWELLING, CALL LIGHT WITHIN REACH, BED AT LOWEST POSITION, SIDE RAILS UP.
[2020-01-01 07:18] LABS: CARBON DIOXIDE 23.2 mmol/L (21-32); CREATININE SERUM 2.9 mg/dL (0.6-1.0); MAGNESIUM 1.8 mg/dL (1.8-2.4); PHOSPHOROUS 5.3 mg/dL (2.5-4.9)
[2020-01-01 07:45] LABS: RED CELL DISTRIBUTION WIDTH 17.5 % (11.5-14.5)
[2020-01-01 07:48] VITALS: BP 109/54
--- NOTE | 2020-01-01 08:35 | NUR ---
BP 109/54. ATENOLOL ON HOLD. PATIENT HAD PREVIOUS HYPOTENSIVE EPISODES. COLACE REFUSED. NAFCILLIN IVPB INFUSING WELL AT 100CC/HR. NO REDNESS OR SWELLING.
--- NOTE | 2020-01-01 11:26 | NUR ---
REPORT GIVEN TO SPECIAL SERVICES AGENTMARIVEL TERRELL
[2020-01-01 11:59] VITALS: BP 119/56
--- NOTE | 2020-01-01 12:05 | NUR ---
NAFCILLIN IVPB INFUSING WELL AT 100CC/HR. NO REDNESS OR SWELLING.
--- NOTE | 2020-01-01 12:06 | NUR ---
PROVIDED PATIENT WITH PREET WIPES PRIOR TO OR SURGERY, CONSENT AND CHECKLIST DONE
--- NOTE | 2020-01-01 12:06 | NUR ---
CBG 132. NO INSULIN REQUIRED
--- NOTE | 2020-01-01 14:10 | NUR ---
PATIENT INSTRUCTED TO USE PREET WIPES PRIOR TO SURGERY. PATIENT UNDERSTOOD INSTRUCTIONS.
--- NOTE | 2020-01-01 14:10 | NUR ---
SPOKE WITH SISTER LESLY. PER LESLY , SHE WANTS TO TALK WITH HER SISTER. CALLED IN PATIENT'S ROOM SO PATIENT MAY SPEAK WITH SISTER.
--- NOTE | 2020-01-01 15:08 | NUR ---
PATIENT TRANSPORTED TO OR FOR WOUND CLOSURE. TELE REMOVED AND PLACED AT BEDSIDE.
--- NOTE | 2020-01-01 17:37 | NUR ---
PATIENT STILL AT OR .
--- NOTE | 2020-01-01 18:30 | NUR ---
DR HUGHES MADE AWARE OF CA AND P RESULTS. PER DR HUGHES, SHE WILL CHECK TOMORROW'S LAB RESULTS AND MONITOR.
--- NOTE | 2020-01-01 19:22 | NUR ---
RECEIVED REPORT FROM LAURA ORTA. PT IN OR AT THIS TIME FOR RT BKA CLOSURE, POSSIBLE REVISION AMPUTATION.
--- NOTE | 2020-01-01 19:39 | NUR ---
RECEIVED REPORT FROM NADER ORTA IN OR. AWAITING FOR PT TO ARRIVE TO UNIT. WILL PLACE TELE MONITOR BACK ON PT ONCE RETURNED TO UNIT.
[2020-01-01 20:07] VITALS: BP 112/49
--- NOTE | 2020-01-01 20:07 | NUR ---
RECEIVED PT VIA BED FROM OR. PT VSS: BP 112/49 (64), HR 94, RR 20, SAO2 95% RA, TEMP 97.6. PT AAOX4 AND DENIES GARCIA/DIZZINESS. PT IS DROWSY, BUT EASILY AROUSABLE TO COMMAND. PT PLACED BACK ON TELE #39, NSR. PT DENIES CP/PRESSURE. PT PULSES PALPABLE AND +2 EDEMA NOTED TO BUE. PT LUNG SOUNDS CTA ON RA. PT BREATHING E/U. PT DENIES SOB OR RESP DISTRESS. PT ABD SOFT/ROUND WITH ACTIVE BS X4. PT DENIES N/V/C/D. PT RICKS CATH IN PLACE DRAINING YELLOW URINE. PT HAS GENERALIZED WEAKNESS. PT HAS RIGHT BKA WITH SUTURES, TRINI, DARIN WRAP WITH FELIPA DEVICE ATTACHED. PT HAS OPEN WOUND TO RFA, FLAMER AFTER LASTING. PICTURES TAKEN AND PLACED IN CHART. PT DENIES S/S OF PAIN OR DISCOMFORT AT THIS TIME. PT HAS REJ 20G PATENT/INTACT/SL. PT HAS LFA ARTERIAL LINE CATH 20G PATENT/INTACT/SL. ALL NEEDS MET. CALL LIGHT WITHIN REACH. BED IN LOWEST POSITION. SIDE RAILS X2 UP. WILL CONTINUE TO MONITOR.
--- NOTE | 2020-01-01 22:04 | NUR ---
RETURNED LESLY SHARYNJin (SISTER) [phone] CALL. PROVIDED FAMILY WITH PT UPDATES POST-OP. ALL QUESTIONS AND CONCERNS ANSWERED.
--- NOTE | 2020-01-01 23:00 | NUR ---
MADE DR. DC AWARE OF PT WOUND TO RFA. PER , SHE WILL PUT IN WOUND CARE ORDERS FOR THE PT.
--- NOTE | 2020-01-02 00:11 | NUR ---
PT RESTING COMFORTABLY WITH EYES CLOSED, EASILY AROUSABLE. PT BREATHING E/U ON RA. NO ACUTE DISTRESS NOTED. PER EMAR, ADMINISTERED NAFCILLIN IVPB AT 100ML/HR. ALL NEEDS MET. WILL CONTINUE TO MONITOR.
[2020-01-02 04:41] VITALS: BP 95/45
--- NOTE | 2020-01-02 06:38 | NUR ---
PT RESTED COMFORTABLY WITH EYES CLOSED DURING THE NIGHT, EASILY AROUSABLE. NO ACUTE DISTRESS NOTED. PT BREATHING E/U ON RA. IV PATENT/INTACT. COMFORT AND SAFETY MEASURES MAINTAINED. ALL QUESTIONS AND CONCERNS ANSWERED. ALL NEEDS MET. WILL ENDORSE TO DAY SHIFT NURSE.
[2020-01-02 08:39] VITALS: BP 118/50
[2020-01-02 12:29] VITALS: BP 109/51
--- NOTE | 2020-01-02 15:19 | NUR ---
DAY SHIFT RECEIVED PATIENT AWAKE AND ALERT, ABLE TO MAKE NEEDS KNOWN. CELL PHONE AT BEDSIDE IS USED TO UPDATE HER BOYFRIEND AND FAMILY. NO COMPLAINT OF RESPIRATORY DISTRESS NOTED. TOLERATING DIET WELL. PENDING PLACEMENT AT A HALF-WAY FACILITY. WAS ABLE TO WORK WITH PT TODAY ON GETTING UP AND SITTING AT EDGE OF BED. PATIENT STATED AFTER PT THAT IT HAD MADE HER HOPEFUL THAT SHE COULD POSSIBLY HAVE AN "ALMOST NORMAL" LIFE. COVID SWAB COLLECTED FOR SNF PLACEMENT. PATIENT ON FELIPA WOUND VAC.
--- NOTE | 2020-01-02 15:31 | NUR ---
Follow-up Nutrition Assessment: MichaelA DILAN MANUEL 59F HR Dx: Sepsis, right leg cellulitis, r/o COVID PMHx: DM, Hypothyroidism Labs: (12/31) Na 132L, BG 140H, BUN 26H, Creat 2.9H, Ca 7.0L, Phos 5.3H, WBC 17.1H, H/H 9.6/29L (12/24) alb 1.6L (12/21) A1C 8.9H, Ferritin 303.3H, HDL 31L, Lipase 446H Meds: Colace, Cymbalta, Lantus, Lipitor, Mirapex, Nafcillin sodium, NaCl, Synthroid, Tenormin PRN meds: D50%, Humulin, [place], Tylenol, Zofran Diet: CCHO PO Intake: (01/01) since last f/up, only two entries on 12/30 B:80 L: 45, average 63% for two meals ;(12/29) variable, 30-100%, avg 72% Weights: (01/01) bedscale: 114.5kg/251.8# (12/22) 101.8kg BMI: 41 IBW: 50kg/110# x 5.9%(lower leg & foot amputation) = 47kg/104# ABW: 61kg/134# Skin: Right BKA w/ blanca device attached. Open wound to RFA. Blisters noted to Myron: 18 Edema: +2 edema to BUE GI: feeling nausea but no v/c/d Last BM: 12/[address](12/29): per MD progress note amputation of the right leg (BKA) scheduled today, pt is NPO, pt not at bedside when visited RD Note(01/01): Per MD progress notes on 01/01, pt is POD#3 for right BKA. Pt was laying down during today's follow up. During the time of visit, pt appeared to be under the influence of medication. She says she has no appetite to eat and has been feeling nauseous but no vomiting. She denies having constipation and diarrhea. Pt mentioned that the shakes she has to drink are too sweet and would prefer to have the vanilla flavor. Estimated Nutritional Needs Based on adjusted body weight (61kg) Energy: 6420-5723 kcal/day (30-35 kcal/kg for sepsis, optimal wound healing) Protein: 76-92 g/day (1.25-1.5 g/kg for sepsis, optimal wound healing) Fluid: 9637-3492 mL/day (1 mL/kcal) Nutrition Diagnosis: 1. Increased energy and protein needs r/t skin integrity a/e/b pt has surgical wound and on wound vac. (ongoing) 2. Impaired nutrition utilization r/t endocrine dysfunction a/e/b pt elevated BG 234H, POC BG 254H on12/24, and A1C 8.9 on 12/21. (ongoing) Intervention: 1. Recommend continue CCHO diet as tolerated 2. Recommend resuming glucerna BID to meet high kcal and protein demand. It will provide additional 440kcal and 20g protein. 3. Recommend resuming Oj BID for wound healing. Paged for recommendation. acknowledge the recommendation. Monitor/Evaluate: Goal: Have pt meet at least 75% of estimated needs, Monitor: PO intake, Labs, GI function, body weight, skin integrity F/U in 2-3 days as high risk (01/03-)
--- NOTE | 2020-01-02 16:25 | NUR ---
DIETITIAN CO-SIGN The Nutrition Notes documented by the Distillery Manager have been reviewed. Reviewed/Co-Signed by: Bartolo Carolina Documentation Done by: Deb Larios
[2020-01-02 16:28] VITALS: BP 120/48
--- NOTE | 2020-01-02 19:58 | NUR ---
PT RECEIVED IN BED, AWAKE RESTING COMFORTABLY. A/O X4, SPEECH CLR, NO C/O GARCIA OR DIZZINESS, ABLE TO FOLLOW COMMANDS AND ABLE TO MAKE NEEDS KNOWN. LUNG SOUNDS CLR BILATERALLY, RESP IS EVEN AND UNLABORED, SPO2 98% ON RA. RADIAL AND PEDAL PULSES PRESENT, +3 EDEMA NOTED TO BUE, TRACE EDEMA NOTED TO LLE. S/P BKA, PT VERBALIZED DISCOMFORT ON AMUTATED EXTREMITY. SURGUCAL SITE WRAPPED WITH DRESSING WITH SPLINT APPEARS TO BE CDI, FELIPA WOUND VACC MACHINE VISIBLE, OPEN WOUND NOTED ON RIGH ARM, WOUND BED IS WHITE, SURROUNDING SKIN IS PINK WITH SOME OLD SEROSANGIUNEOUS DRY STAINS, FLUIDFILLED BLISTER ON LEFT HAND ALSO NOTED, OPEN TO AIR, BLUISH DISCOLORATION NOTED ON THE RIGHT HAND WELL. IV SITE TO LEFT AC, APPEARS TO BE CDI, REJ NOTED, DRESSING APPEARS TO BE CDI. MADE PT COMFORTABLE, CALL LIGHT WITHIN REACH, WILL CONT TO [id number] FOR CHANGES IN CONDITION.
[2020-01-02 21:07] VITALS: BP 126/64
--- NOTE | 2020-01-03 01:30 | NUR ---
ARTERIAL LINE DC'D BY THE ICU NURSE, CHELSEY. TOLERATED WELL.
[2020-01-03 05:23] VITALS: BP 98/45
[2020-01-03 07:35] LABS: BASOPHIL % 0.7 % (0-2)
[2020-01-03 07:49] LABS: CALCIUM 7.4 mg/dL (8.5-10.1); CARBON DIOXIDE 19.5 mmol/L (21-32); CREATININE SERUM 3.4 mg/dL (0.6-1.0); MAGNESIUM 1.8 mg/dL (1.8-2.4); PHOSPHOROUS 5.2 mg/dL (2.5-4.9); POTASSIUM SERUM 3.7 mmol/L (3.5-5.1)
--- NOTE | 2020-01-03 07:50 | NUR ---
PT REMAINED IN BED, AWAKE WATCHING TELEVISION. NEEDS ATTENDED AND MET, FREQUENT VISUAL MONITORING RENDERED. RESP IS EVEN AND UNLABORED, NO ACUTE DISTRESS NOTED. CALL LIGHT WITHIN REACH, BED TO LOWEST POSIION. SURGICAL SITE REMAINED CDI, NO C/O PAIN. ENDORSED TO DAY SHIFT NURSE
--- NOTE | 2020-01-03 08:00 | NUR ---
RECEIVED PT. IN BED A/A/O X3. NO SOB, NO N/V NOTED. PT. DENIES ANY PAIN AT THIS TIME. IV SITE #1 NOTED TO Suma CALVERT. IV SITE #2 NOTED TO Martinez BESS. R BKA WITH DRESSING CDI. R BKA IS SUPPORTED WITH SPLINT. WOUND VAC TO R BKA IN PLACE. F/C DRAINING ALEX URINE. BED IN LOW POS., CALL LIGHT WITHIN REACH. SIDE RAILS UP X3.
[2020-01-03 08:05] LABS: PLATELET COUNT 432 x10^3mcL (130-400); RED CELL DISTRIBUTION WIDTH 18.6 % (11.5-14.5)
[2020-01-03 09:42] VITALS: BP 105/50
[2020-01-03 13:33] VITALS: BP 108/54
--- NOTE | 2020-01-03 13:35 | NUR ---
Lydia FARLEY AT BEDSIDE ASSESSING PT.'S R BKA STUMP. SPLINT REMOVED BY DR. KELLEY AT THIS TIME. DR. KELLEY SAID OK TO TAKE OFF SPLINT OCCASIONALLY THROUGH OUT THE DAY. DR. KELLEY SAID OK TO LEAVE THE DRESSING TO R BKA STUMP ON UNTIL 01/09/20.
[2020-01-03 17:02] VITALS: BP 125/56
--- NOTE | 2020-01-03 17:07 | NUR ---
REMAINS IN STABLE CONDITION AT THIS TIME. F/C CARE GIVEN. WILL CONTINUE TO MONITOR.
--- NOTE | 2020-01-03 19:30 | NUR ---
RECEIVED PT IN BED, AWAKE RESTING COMFORTABLY. A/0 X 3, ABLE TO FOLLOW COMMANDS, ABLE TO MAKE NEEDS KNOWN, SPEECH IS CLR, NO C/O GARCIA IR DIZZINESS. PT ON TELE 39, NSR, NO C/O CHEST PAIN. RADIAL AND PEDEAL PULSES PRESENT, BUE +2 EDEMA AND LLE TRACE EDEMA NOTED. SP R BKA, SURGICAL SITE DRESSING WITH SPLINTAND FELIPA WOUND VAC APPEARS TO BE CLEAN DRY AND INTACT,OPEN AREA ON THE R ARM NOTED , KEEP OPEN TO AIR, FLUID FILLED BLISTER ON THE LH NOTED, KEEP OPEN TO AIR. IV SITE ON THE LFA CONNECTED TO NS @ 70 ML/HR CDI. LUNG SOUNDS CLR BILATERALLY, RESP EVEN AND UNLABORED, SPO2 98% ON RA. F/C DRAINING CLR YELLOW URINE, NO DISCOMFORT REPORTED. BED TO LOWEST POSITION, CALL LIGHT WITHIN REACH. WILL CONT TO MONITOR
[2020-01-03 21:01] VITALS: BP 134/71
[2020-01-04 05:25] VITALS: BP 108/52
--- NOTE | 2020-01-04 06:11 | NUR ---
PT IN BED RESTING WITH EYES CLOSED. NO C/O PAIN, NO ACUTE DISTRESS NOTED. RESP I EVEN AND UNALBORED, NEEDS ATTENDED AND MEET, FREQUENT VISUAL MONITORING RENDERED. DRESSING IN THE R STUMP CDI, SPLINT ON , PER ORTHO MAY REMOVE ON AND SPLINT IF PT REQUEST. BED TO LOWEST POSITION, CALL LIGHT WITHIN REACH, WILL CONT TO MONITOR FOR CHANGES IN CONDITION AND ENDORSE TO DAY SHIFT NURSE.
--- NOTE | 2020-01-04 08:00 | NUR ---
RECEIVED PT. IN BED A/A/O X3. NO SOB, NO N/V NOTED. PT. DENIES ANY PAIN AT THIS TIME. IVF NS RUNNING AT 70 CC/HR VIA IV SITE AT L FA. IV SITE #2 NOTED TO R EJ. DRESSING TO R BKA STUMP CDI. WOUND VAC TO R BKA STUMP IN PLACE. R BKA STUMP IS SUPPORTED IN SPLINT. F/C DRAINING ALEX URINE. BED IN LOW POS., CALL LIGHT WITHIN REACH. SIDE RAILS UP X3.
[2020-01-04 08:54] VITALS: BP 127/54
[2020-01-04 09:41] LABS: CALCIUM 7.4 mg/dL (8.5-10.1); CARBON DIOXIDE 19.7 mmol/L (21-32); CREATININE SERUM 3.3 mg/dL (0.6-1.0); MAGNESIUM 1.8 mg/dL (1.8-2.4); POTASSIUM SERUM 3.4 mmol/L (3.5-5.1)
[2020-01-04 09:56] LABS: BASOPHIL % 0.9 % (0-2); PLATELET COUNT 400 x10^3mcL (130-400)
[2020-01-04 10:08] LABS: RED CELL DISTRIBUTION WIDTH 18.7 % (11.5-14.5)
[2020-01-04 13:23] VITALS: BP 133/57
--- NOTE | 2020-01-04 13:25 | NUR ---
1. Recommend CCHO diet, Glucerna BID and Oj BID for wound healing.
--- NOTE | 2020-01-04 13:25 | NUR ---
Follow-up Nutrition Assessment: Mayra Marks 235T-A (add glucerna BID) Dx: Fever and weakness Labs: (01/03) Na:135L, K:3.4L, BH, BUN:26H, Cr:3.3H, Ca:7.4L, Phos:5.0H, H/H:7.9/24L Meds: Colace, Cymbalta, Humulin PRN, Lantus, Lipitor, Mirapex, Naficillin, [place], NS IV, Synthroid, Tenormin, Tylenol and Zofran Diet: CCHO with Oj BID PO intake: (12/31) NPO (01/01) L:10% (01/02) B:75% L:100% D:75% Weights: (01/01) 114.5kg, 252# (01/03) 254# increase possibly due to wound vac Skin: surgical site s/p right BKA with dressing Edema: BUE +2, Trace edema to LLE Last BM: 01/03 Per progress note 01/03, pt is POD#5 s/p right BKA, POD#3 s/p revision right BKA amputation: right leg irrigation and debridement of skin, muscle subcutaneous tissue and bone. Right below the knee wound VAC application. Pt is on day 9 of nafcillin. PT recommended SNF, pending negative COVID test for placement. During visit, pt was seen asleep and unarousable. Observed wound vac to right BKA stump. Per nursing notes, pt with improved PO intake and per shift assessment no c/o N/V. Will continue to monitor. Estimated Nutritional Needs based on adjusted body weight: 61kg Energy: 1830-2135kcal/day (30-35kcal/kg for wound healing) Protein: 76-92g/day (1.25-1.5g/kg for wound healing) Fluid: 1830-2135ml/day (1ml/kcal) Nutrition Diagnosis 1. Increased nutrient needs related to altered skin integrity as evidenced by s/p right BKA and with wound vac. Intervention: 1. Recommend CCHO diet, Glucerna BID and Oj BID for wound healing. Monitor/Evaluate Previous goal: PO intake to meet at least 75% of estimated needs (met) Goal: PO intake to meet at least 75% of estimated needs and wound healing Monitor: PO intake, Labs, GI function, Skin integrity, Weights. F/U in 2-3 days as high risk (01/05-01/06)
[2020-01-04 17:53] VITALS: BP 150/72
--- NOTE | 2020-01-04 18:55 | NUR ---
REMAINS IN STABLE CONDITION AT THIS TIME. F/C CARE GIVEN.
--- NOTE | 2020-01-04 19:40 | NUR ---
RECEIVED PT IN BED, AWAKE HAVING DINNER. A/O X 3, ABLE TO FOLLOW COMMANDS, ABLE TO MAKE NEEDS KNOWN. SPEECH IS CLR, NO C/O GARCIA OR DIZZINESS. RESP IS EVEN AND UNLABORED, LUNG SOUNDS CLR BILATERALLY, SP02 97% ON RA. TELE # 39, NO C/O OF CHEST PAIN OR SOB. SP RBKA, SURGICAL SITE WRAPPED IN DRESSING WITH SPLINT ANDPICO WOUND VAC, APPEARS TO BE CLEAN DRY AND INTACT, OPEN WOUND NOTED TO THE R ARM, NO DRAINAGE NOTED, DISCOLORATION ON THE LEFT HAND, ALSO NOTED. IV SITE TO THE LFA, CDI. REJ NOTED, CDI. ABD ROUND AND SOFT, ACTIVE BS PRESENT X4, NO C/O NVD, SM BM REPORTED BY DAY SHIFT NURSE. F/C DRAINING CLR YELLOW URINE, NO DISCOMFORT REPORTED. BED TO LOWEST POSITION, NO C/O PAIN AT THIS TIME. CALL LIGHT WITHIN REACH.
[2020-01-04 21:06] VITALS: BP 139/65
[2020-01-05] VITALS (7 sets, daily range): BP systolic 116–145; BP diastolic 50–67
--- NOTE | 2020-01-05 00:13 | NUR ---
PT IN BED RESTING COMFORTABLY WITH EYES CLOSED. NO C/O PAIN AT THIS TIME. RESP IS EVEN AND UNLABORED, REMAINED STABLE AT THIS TIME. IV ATB ADMINISTERED ORDERED. CALL LIGHT WITHIN REACH, WILL CONT TO MONIOTR FOR CHANGES IN CONDITION.
[2020-01-05 07:27] LABS: BASOPHIL % 0.6 % (0-2); PLATELET COUNT 371 x10^3mcL (130-400)
--- NOTE | 2020-01-05 07:42 | NUR ---
RECEIVED AWAKE, ALERT AND ORIENTED. IN NO ACUTE RESP. DISTRESS. ON RA SATS 97%. VS WNL. NO C/O PAIN OR DISCOMFORT AT THIS TIME. IVF INFUSING WELL TO LFA, SITE SLIGHTLY TENDER TO TOUCH PER PT BUT WITH GOOD BLOOD RETURN. RICKS CATH IN PLACE DRAINING TO GRAVITY. SPLINT TO LT STUMP D/C/I.CALL LIGHT WITHIN REACH. WILL CONTINUE WITH PLAN OF CARE.
[2020-01-05 07:46] LABS: CALCIUM 7.4 mg/dL (8.5-10.1); CARBON DIOXIDE 20.1 mmol/L (21-32); MAGNESIUM 1.7 mg/dL (1.8-2.4); PHOSPHOROUS 4.5 mg/dL (2.5-4.9); POTASSIUM SERUM 3.1 mmol/L (3.5-5.1)
[2020-01-05 08:08] LABS: RED CELL DISTRIBUTION WIDTH 19.1 % (11.5-14.5)
--- NOTE | 2020-01-05 14:31 | NUR ---
RECEIVED AN ORDER FOR PICC LINE INSERTION. CONSENT SIGNED. CONTRACTED PICC LINE SERVICES CALLED AND TALKED TO STEPHENIE WHO WILL CALL US BACK ONCE NURSE IS AVAILABLE.
[2020-01-05] MEDS ORDERED: LIPITOR80 MG PO (14:38)
[2020-01-05] MEDS ORDERED: TEN50 PO (14:39)
[2020-01-05] MEDS ORDERED: DULOXETINE HYDR60 MG PO (14:39)
[2020-01-05] MEDS ORDERED: MIR25 PO (14:39)
[2020-01-05] MEDS ORDERED: SYN88 PO (14:40)
[2020-01-05] MEDS ORDERED: BG FS (14:40)
[2020-01-05] MEDS ORDERED: LANTI SQ (14:40)
--- NOTE | 2020-01-05 15:03 | NUR ---
RECEIVED A CALL FROM [facility]-PICC NURSE, STATED SHE NEEDS 24HRS WINDOW FOR PICC LINE INSERTION. WILL NOTIFY
--- NOTE | 2020-01-05 16:53 | NUR ---
C/O PAIN TO RLE, AT THE INCISION SITE. MEDICATED WITH NORCO
--- NOTE | 2020-01-05 18:15 | NUR ---
WAITING FOR PICC LINE INSERTION, PENDING TRANSFER TO SNF
--- NOTE | 2020-01-05 20:47 | NUR ---
[facility] REPORT GIVEN TO MS. ALVAREZ-MARIVEL. MIDLINE INSERTED TO GARRETT BY PICC LINE NURSE, IN PLACE AND FLUSHES WELL. OK TO USE PER PICC LINE NURSE.
--- NOTE | 2020-01-05 20:51 | NUR ---
[facility] CALLED AND WILL PICK PT UP AT 10PM
--- NOTE | 2020-01-05 22:18 | NUR ---
PT LEFT TO TRELLIS IN NO ACUTE RESP. DISTRESS. AWAKE AND ALERT. NO CHANGES IN VS. NO C/O PAIN OR DISCOMFORT AT THE TIME OF DC. HL AND MIDLINE INTACT, RICKS CATH IN PLACE DRAINING WELL. PERSONAL BELONGINGS SENT WITH PATIENT.
== END 2020-01-05 21:44 | DRG 853 ==
LOC: ED 16:35 → IC 20:26 → DU 20:26
PROVIDERS: Emergency Medicine; Internal Medicine; Orthopaedic Surgery; Student in an Organized Health Care Education/Training Program; ADMIT Family Medicine; ATTEND Family Medicine
PROC: 0QBG0ZZ Excision of Right Tibia, Open Approach (ICD-10-PCS; principal; 2019-12-24 13:30)
PROC: 0QBG0ZX Excision of Right Tibia, Open Approach, Diagnostic (ICD-10-PCS; 2019-12-27)
PROC: 0YP90JZ Removal of Synthetic Substitute from Right Lower Extremity, Open Approach (ICD-10-PCS; 2019-12-27)
PROC: 0Y6H0Z1 Detachment at Right Lower Leg, High, Open Approach (ICD-10-PCS; 2019-12-30)
PROC: 30233N1 Transfusion of Nonautologous Red Blood Cells into Peripheral Vein, Percutaneous Approach (ICD-10-PCS; 2019-12-31)
PROC: 0QBG0ZZ Excision of Right Tibia, Open Approach (ICD-10-PCS; 2020-01-01)
DX: A41.9 Sepsis, unspecified organism (principal); N17.0 Acute kidney failure with tubular necrosis; L03.115 Cellulitis of right lower limb; E87.1 Hypo-osmolality and hyponatremia; N39.0 Urinary tract infection, site not specified; M86.8X7 Other osteomyelitis, ankle and foot; Z68.41 Body mass index [BMI] 40.0-44.9, adult; T81.41XA Infection following a procedure, superficial incisional surgical site, initial encounter; Z20.828 Contact with and (suspected) exposure to other viral communicable diseases; W18.39XA Other fall on same level, initial encounter; Y93.89 Activity, other specified; Y92.89 Other specified places as the place of occurrence of the external cause; Y99.8 Other external cause status; E11.40 Type 2 diabetes mellitus with diabetic neuropathy, unspecified; Z89.412 Acquired absence of left great toe; E03.9 Hypothyroidism, unspecified; R65.20 Severe sepsis without septic shock; F32.9 Major depressive disorder, single episode, unspecified; E66.01 Morbid (severe) obesity due to excess calories; Z71.3 Dietary counseling and surveillance; E11.65 Type 2 diabetes mellitus with hyperglycemia; Y83.8 Other surgical procedures as the cause of abnormal reaction of the patient, or of later complication, without mention of misadventure at the time of the procedure
CPT/HCPCS: 36600; 82962; 83880; 84439; 97110-GP; 97116-GP; 97530-GP; C1713; G0378; J0330; J0690; J0692; J1100; J1170; J1644; J1815; J2001; J2250; J2270; J2274; J2310; J2405; J2543; J2704; J2710; J3010; J3370; J3490; J7030; J7040; J7042; J7050; J7120; P9016; Q0092; Q0163; U0003-CS